=== PATIENT | female | born 1965 | race Caucasian/White ===

== ENCOUNTER 2016-04-13 10:49 | Emergency (ER) | payer OTHER ==
[2016-04-13] MEDS ORDERED: KETOROLAC 30 MG/ML VIAL (J1885) As Ordered ONE (11:09)
[2016-04-13] MEDS ORDERED: ONDANSETRON 4MG/2ML VIAL (J2405) As Ordered ONE (11:09)
[2016-04-13 11:46] LABS: BASO % 0.3 % (0.0-1.0); EOS # 0.1 K/mm3 (0.0-0.50); EOS % 1.3 % (0.0-3.0); LARGE UNSTAINED CELL # 0.1 K/mm3 (0.0-0.4); LARGE UNSTAINED CELL % 1.9 % (0.0-4.0); LYMPH # 1.2 K/mm3 (1.5-4.5); LYMPH % 20.8 % (24.0-44.0); MEAN CORPUSCULAR HEMOGLOBIN 28.9 pg (27.0-33.0); MEAN CORPUSCULAR HGB CONC 33.4 g/dl (32.0-36.5); MEAN CORPUSCULAR VOLUME 86.4 fl (80.0-96.0); MONO # 0.3 K/mm3 (0.0-0.8); MONO % 5.3 % (0.0-5.0); NEUTROPHILS # 3.9 K/mm3 (1.8-7.7); NEUTROPHILS % 70.4 % (36.0-66.0); PLATELET COUNT, AUTOMATED 245 k/mm3 (150-450); RED CELL DISTRIBUTION WIDTH 13.2 % (11.5-14.5); WHITE BLOOD COUNT 5.5 K/mm3 (4.0-10.0)
[2016-04-13 11:53] LABS: ALBUMIN 3.6 GM/DL (3.2-5.2); ALBUMIN/GLOBULIN RATIO 1.03 (1.00-1.93); ALKALINE PHOSPHATASE 60 U/L (45-117); ALT/SGPT 14 U/L (12-78); AMYLASE 38 U/L (25-115); ANION GAP 8 MEQ/L (8-16); AST/SGOT 7 U/L (15-37); BILIRUBIN,DIRECT < 0.1 MG/DL (0.0-0.2); BILIRUBIN,TOTAL 0.3 MG/DL (0.2-1.0); BLOOD UREA NITROGEN 12 MG/DL (7-18); CALCIUM LEVEL 8.5 MG/DL (8.5-10.1); CARBON DIOXIDE LEVEL 27 MEQ/L (21-32); CHLORIDE LEVEL 106 MEQ/L (98-107); CREATININE FOR GFR 0.63 MG/DL (0.55-1.02); GLOMERULAR FILTRATION RATE > 60.0 (>51); GLUCOSE, FASTING 86 MG/DL (70-105); SODIUM LEVEL 141 MEQ/L (136-145); TOTAL PROTEIN 7.1 GM/DL (6.4-8.2)
--- NOTE | 2016-04-13 12:36 | REP ---
CT ABDOMEN AND PELVIS WITHOUT CONTRAST: CT abdomen and pelvis performed without oral or IV contrast. The visualized lung bases demonstrate a calcified granuloma laterally on the right. The liver, gallbladder, spleen, adrenals, pancreas and right kidney are grossly unremarkable. The left kidney demonstrates a tiny 2 mm calcification in the lower pole. No ureteral or bladder calculi are seen. There is no hydroureteronephrosis. There is no abdominal aortic aneurysm. There is no adenopathy or free air. No bowel wall thickening is seen. There is no evidence of appendicitis. I see no evidence of a pelvic mass. A tiny amount of free fluid in the pelvis is likely physiologic in nature. There is a small umbilical hernia containing fat. IMPRESSION: Tiny intrarenal calcification lower pole left kidney. No ureteral or bladder calculi and no hydroureteronephrosis. No CT evidence of acute appendicitis. Small umbilical hernia contains fat. Signed by Darien Bower MD 04/13/2016 05:04 P
[2016-04-13] MEDS ORDERED: NITROFURANTOIN (MACROBID) 100 MG CAP As Ordered ONE (13:37)
[2016-04-13] MEDS ORDERED: PHENAZOPYRIDINE 100 MG TAB As Ordered ONE (13:37)
--- NOTE | 2016-04-13 13:47 | EDDOCDS ---
Physician Documentation [facility] Name: Gail Cantu Age: 50 yrs Sex: Female : 1965 Arrival Date: 04/13/2016 Time: 10:49 Bed I5 / M5 Private MD: Pan Ledezma [facility] Disposition: 04/13/16 13:34 Discharged to Home/Self Care. Impression: Calculus of kidney - Left tiny intrarenal calculus, Urinary tract infection, site not specified, Nausea and vomiting. - Condition is Stable. - Discharge Instructions: Kidney Stones, Urinary Tract Infection, [id number], Nausea and Vomiting, Ukqz-[id number]. - Prescriptions for Naprosyn 500 mg Oral Tablet - take 1 tablet by ORAL route 2 times per day take with food; 30 tablet. Pyridium 200 mg Oral Tablet - take 1 tablet by ORAL route every 8 hours for 3 days; 9 tablet. Macrobid 100 mg Oral Capsule - take 100 milligram by ORAL route every 12 hours for 10 days; 20 capsule. ZOFRAN ODT 4 mg - dissolve 1 tablet by ORAL route 4 times per day As needed do not chew, do not swallow whole; 10 tablet. - Medication Reconciliation, Local Pharmacy Hours form. - Follow up: Pan Ledezma; When: 1 - 2 days; Reason: Recheck today's complaints, Continuance of care. Follow up: Emergency Department; Reason: Worsening of conditions. Follow up: Jamison James; When: Call to arrange an appointment; Reason: Further diagnostic work-up, Recheck today's complaints, Continuance of care. - Problem is new. - Symptoms have improved. Historical: - Allergies: No known drug Allergies; - Home Meds: 1. Motrin 600 mg Oral tab 3 times per day (Last dose: 04/12/2016 21:00) 2. Zanaflex 4 mg Oral cap 1 cap 3 times per day (Last dose: 04/12/2016 21:00) - PMHx: none; - PSHx: D & C; - Social history: Smoking status: Patient states was never smoker of tobacco. No barriers to communication noted, The patient speaks fluent [place]ut[place], Speaks appropriately for age. - Family history: Not pertinent. - : The pt / caregiver states he / she is not on anticoagulants. Home medication list is obtained from the patient. - Exposure Risk Screening:: None identified. BATTERY PLATE REMOVER: 04/13 10:59 LMP 04/12/2016 hs1 Vital Signs: 10:51 BP 159 / 93; Pulse 76; Resp 18; Temp 98.7; Pulse Ox 98% on R/A; Weight 107.05 kg / 236 jrd lbs (R); Height 5 ft. 4 in. (162.56 cm) (R); Pain 10/10; 12:39 BP 157 / 86; Pulse 60; Resp 20; Temp 98.4(TE); Pulse Ox 100% on R/A; Pain 5/10; jml1 13:33 BP 145 / 87; Pulse 66; Resp 18; Temp 98.8(TE); Pulse Ox 97% on R/A; Pain 5/10; jml1 10:51 Body Mass Index 40.51 (107.05 kg, 162.56 cm) jrd MDM: 11:06 NS 0.9% 1000 ml IV at bolus once ordered. ef1 11:06 Ondansetron 4 mg IVP once ordered. ef1 11:06 ketorolac 30 mg IVP once ordered. ef1 11:06 IV Saline Lock ordered. ef1 11:06 Undress patient appropriately for examination ordered. ef1 11:06 UCG by Nursing ordered. ef1 11:06 UCG by Nursing ordered. ml6 11:06 Urine Dip ordered. ml6 11:06 Amylase Ordered. EDMS 11:06 Basic Metabolic Profile Ordered. EDMS 11:06 CBC with Diff Ordered. EDMS 11:06 Lipase Ordered. EDMS 11:06 Liver Profile Ordered. EDMS 11:06 Urinalysis Ordered. EDMS 11:06 Urine Culture Ordered. EDMS 11:07 CT ABD & PELVIS: No Contrast Ordered. EDMS 11:07 NOTHING BY MOUTH+DIET ordered. EDMS 11:36 Financial registration complete. mm15 11:40 [facility] [place] was scanned into [employer] and attached to record. mm15 12:33 CBC with Diff Reviewed. ef1 12:33 Liver Profile Reviewed. ef1 12:33 Urinalysis Reviewed. ef1 12:33 Amylase Reviewed. ef1 12:33 Basic Metabolic Profile Reviewed. ef1 12:33 Lipase Reviewed. ef1 13:34 Nitrofurantoin 100 mg PO once ordered. ef1 13:34 Phenazopyridine 200 mg PO once ordered. ef1 Point of Care Testing: Urine : 11:17 hCG Reading: Negative; Control Reading: Positive; ar3 Ranges: Administered Medications: : Drug: NS 0.9% 1000 ml [sodium chloride 0.9 % intravenous solution] Route: IV; Rate: dls bolus; Site: right antecubital; Drug: Ondansetron 4 mg [ondansetron HCl 2 mg/mL intravenous solution (2 mL)] Route: dls IVP; Site: right antecubital; Drug: ketorolac 30 mg [ketorolac 30 mg/mL (1 mL) injection solution (1 mL)] Route: IVP; dls Site: right antecubital; 13:43 Drug: Nitrofurantoin 100 mg Route: PO; chilo 13:43 Drug: Phenazopyridine 200 mg [phenazopyridine 100 mg tablet (2 tabs)] Route: PO; chilo Signatures: Dispatcher [employer] EDTwan Martin RN RN jmk Scott, Debra, RN RN dls Neli Cooley PA-C PA-C ef1 Barrera Bustillo RN RN ml6 Cortney Elias RN RN hs1 Manuel Ramirez mm15 The chart was reviewed and I authenticate all verbal orders and agree with the evaluation and treatment provided.Corrections: (The following items were deleted from the chart) 11:09 11:07 URINALYSIS+LAB ordered. EDNE EDMS Attachments: 11:40 [facility] Payment Agreement mm15 MTDD
--- NOTE | 2016-04-13 13:47 | EDDOCDS ---
Nurse's Notes [facility] Name: Gail Cantu Age: 50 yrs Sex: Female : 1965 Arrival Date: 04/13/2016 Time: 10:49 Bed I5 / M5 Private MD: Pan Ledezma NCFM Diagnosis: Calculus of kidney-Left tiny intrarenal calculus;Urinary tract infection, site not specified;Nausea and vomiting Presentation: 04/13 10:54 Presenting complaint: Patient states: Dr perez office on - and was told that hs1 she had a pulled muscle in back and was given Motrin and Zanaflex. Patient states medication not working and pain is worsening. Patient concerned for kidney infection however patient denies urgency frequency and/or burning. Patient does state she feels dehydrated. Adult Sepsis Screening: The patient does not have new or worsening altered mentation. Patient's respiratory rate is less than 22. Systolic blood pressure is greater than 100. Patient has a qSOFA score of 0- Negative Sepsis Screen. Suicide/Homicide risk assessment- the patient denies having any suicidal and/or homicidal ideations and does not present with any other emotional, behavioral or mental health complaints. Status: Patient is not a services account manager or dependent. Transition of care: patient was not received from another setting of care. 10:54 Acuity: KAT Level 3 hs1 10:54 Method Of Arrival: Walkin/Carried/Asstd hs1 Triage Assessment: 10:58 General: Appears in no apparent distress, uncomfortable, Behavior is appropriate for hs1 age, cooperative. Pain: Location: low back area and mid back area Pain currently is 10 out of 10 on a pain scale. HIV screening NA for this visit Offered previously. Respiratory: No deficits noted. GI: Abdomen is obese, Reports cramping, nausea. Derm: Skin is pink, warm & dry. normal. HYPO DIPPER: 10:59 LMP 04/12/2016 hs1 Historical: - Allergies: No known drug Allergies; - Home Meds: 1. Motrin 600 mg Oral tab 3 times per day (Last dose: 04/12/2016 21:00) 2. Zanaflex 4 mg Oral cap 1 cap 3 times per day (Last dose: 04/12/2016 21:00) - PMHx: none; - PSHx: D & C; - Social history: Smoking status: Patient states was never smoker of tobacco. No barriers to communication noted, The patient speaks fluent [place], Speaks appropriately for age. - Family history: Not pertinent. - : The pt / caregiver states he / she is not on anticoagulants. Home medication list is obtained from the patient. - Exposure Risk Screening:: None identified. Screenin:35 Screening information is obtained from the patient. Fall risk: No risks identified. dls Assistance ADL's: requires no assistance with activities of daily living. Abuse/DV Screen: The patient / caregiver reports he/she is: not in a situation that causes fear, pain or injury. Nutritional screening: No deficits noted. Advance Directives: Currently, there is no health care proxy. There is no active DNR order. There is no living will. There is no Power of Fitter/Welder. Advance directive information has not previously been placed in an [facility] medical record. home support is adequate. Assessment: 11:33 General: Appears in no apparent distress, well developed, well nourished, well groomed, dls Behavior is cooperative. Neurological: No deficits noted. EENT: No deficits noted. Cardiovascular: No deficits noted. Respiratory: No deficits noted. GI: No deficits noted. : No deficits noted. Derm: No deficits noted. Musculoskeletal: No deficits noted. 12:56 General: Appears states pain has decreased to 5/10. k 13:43 General: Appears continues to present in NAD. receptive to discharge. [facility] Vital Signs: 10:51 BP 159 / 93; Pulse 76; Resp 18; Temp 98.7; Pulse Ox 98% on R/A; Weight 107.05 kg (R); d Height 5 ft. 4 in. (162.56 cm) (R); Pain 10/10; 12:39 BP 157 / 86; Pulse 60; Resp 20; Temp 98.4(TE); Pulse Ox 100% on R/A; Pain 5/10; jml1 13:33 BP 145 / 87; Pulse 66; Resp 18; Temp 98.8(TE); Pulse Ox 97% on R/A; Pain 5/10; jml1 10:51 Body Mass Index 40.51 (107.05 kg, 162.56 cm) [facility] Vitals: 10:51 Log In Time: April 13, 2016 at 10:50. jrd ED Course: 10:50 Patient visited by Christ Melvin PCA. jrd 10:50 Patient moved to Waiting jrd 10:51 Pan Ledezma is Private Physician. jrd 10:53 Patient visited by Christ Melvin PCA. jrd 10:53 Patient moved to Pre RCE jrd 10:56 Triage Initiated hs1 10:59 Patient moved to Triage 3 hs1 11:00 Neli Cooley PA-C is PHCP. ef1 11:00 Corrina Vasquez MD is Attending Physician. ef1 11:00 Patient visited by Neli Cooley PA-C. ef1 11:08 Patient visited by Kassidy Ribeiro PCA. bnb 11:10 Patient moved to I5 / M5 ml6 11:17 Patient visited by Shila Sweeney PCA. ar3 11:25 Basic Metabolic Profile Sent. dls 11:25 CBC with Diff Sent. dls 11:25 Lipase Sent. dls 11:25 Liver Profile Sent. dls 11:25 Amylase Sent. dls 11:32 Patient visited by Kassidy Ribeiro PCA. bnb 11:32 Urine collected. Clean catch specimen. bnb 11:35 The patient / caregiver is instructed regarding the plan of care and ED course. dls 11:35 Inserted saline lock: 20 gauge in right antecubital area and blood collected. The dls patient tolerated the procedure well. No procedures done that require assistance. 11:40 [facility] Payment Agreement was scanned into [employer] and attached to record. mm15 12:33 Patient visited by Neli Cooley PA-C. ef1 12:39 Patient visited by Rodríguez Cano. jml1 12:57 Patient visited by Twan Hoyos RN. jmk 12:58 CT ABD & PELVIS: No Contrast Returned. EDMS 13:03 Patient name changed from Gail\S\Cheryl\S\White\S\ to Gail\S\M\S\White. EDMS 13:30 Patient visited by Neli Cooley PA-C. ef1 13:33 Patient visited by Rodríguez Cano. jml1 13:34 Pan Ledezma is Referral Physician. ef1 13:37 Jamison James is Referral Physician. ef1 13:43 Discontinued lock intact, bleeding controlled, pressure dressing applied, No jmk redness/swelling at site. Administered Medications: Drug: NS 0.9% 1000 ml [sodium chloride 0.9 % intravenous solution] Route: IV; Rate: dls bolus; Site: right antecubital; Drug: Ondansetron 4 mg [ondansetron HCl 2 mg/mL intravenous solution (2 mL)] Route: dls IVP; Site: right antecubital; Drug: ketorolac 30 mg [ketorolac 30 mg/mL (1 mL) injection solution (1 mL)] Route: IVP; dls Site: right antecubital; 13:43 Drug: Nitrofurantoin 100 mg Route: PO; [facility] 13:43 Drug: Phenazopyridine 200 mg [phenazopyridine 100 mg tablet (2 tabs)] Route: PO; reanna Point of Care Testing: Urine : : hCG Reading: Negative; Control Reading: Positive; ar3 Ranges: Order Results: Lab Order: Amylase; SPEC'M 04/13/16 11:09 Test: AMYLASE; Value: 38; Range: 25-115; Units: U/L; Status: F Lab Order: Basic Metabolic Profile; SPEC'M 04/13/16 11:09 Test: GLUCOSE, FASTING; Value: 86; Range: 70-105; Units: MG/DL; Status: F Test: BLOOD UREA NITROGEN; Value: 12; Range: 7-18; Units: MG/DL; Status: F Test: CREATININE FOR GFR; Value: 0.63; Range: 0.55-1.02; Units: MG/DL; Status: F Test: GLOMERULAR FILTRATION RATE; Value: > 60.0; Range: >51; Status: F Test: SODIUM LEVEL; Value: 141; Range: 136-145; Units: MEQ/L; Status: F Test: POTASSIUM SERUM; Value: 4.0; Range: 3.5-5.1; Units: MEQ/L; Status: F Test: CHLORIDE LEVEL; Value: 106; Range: 98-107; Units: MEQ/L; Status: F Test: CARBON DIOXIDE LEVEL; Value: 27; Range: 21-32; Units: MEQ/L; Status: F Test: ANION GAP; Value: 8; Range: 8-16; Units: MEQ/L; Status: F Test: CALCIUM LEVEL; Value: 8.5; Range: 8.5-10.1; Units: MG/DL; Status: F Test Note: ; Units are mL/min/1.73 m2 Chronic Kidney Disease Staging per NKF: Stage I & II GFR >=60 Normal to Mildly Decreased Stage III GFR 30-59 Moderately Decreased Stage IV GFR 15-29 Severely Decreased Stage V GFR <15 Very Little GFR Left ESRD GFR <15 on KEEL PRESS OPERATOR Lab Order: CBC with Diff; SPEC'M 04/13/16 11:09 Test: WHITE BLOOD COUNT; Value: 5.5; Range: 4.0-10.0; Units: K/mm3; Status: F Test: RED BLOOD COUNT; Value: 4.75; Range: 4.00-5.40; Units: M/mm3; Status: F Test: HEMOGLOBIN; Value: 13.7; Range: 12.0-16.0; Units: g/dl; Status: F Test: HEMATOCRIT; Value: 41.0; Range: 36.0-47.0; Units: %; Status: F Test: MEAN CORPUSCULAR VOLUME; Value: 86.4; Range: 80.0-96.0; Units: fl; Status: F Test: MEAN CORPUSCULAR HEMOGLOBIN; Value: 28.9; Range: 27.0-33.0; Units: pg; Status: F Test: MEAN CORPUSCULAR HGB CONC; Value: 33.4; Range: 32.0-36.5; Units: g/dl; Status: F Test: RED CELL DISTRIBUTION WIDTH; Value: 13.2; Range: 11.5-14.5; Units: %; Status: F Test: PLATELET COUNT, AUTOMATED; Value: 245; Range: 150-450; Units: k/mm3; Status: F Test: NEUTROPHILS %; Value: 70.4; Range: 36.0-66.0; Abnormal: Above high normal; Units: %; Status: F Test: LYMPH %; Value: 20.8; Range: 24.0-44.0; Abnormal: Below low normal; Units: %; Status: F Test: MONO %; Value: 5.3; Range: 0.0-5.0; Abnormal: Above high normal; Units: %; Status: F Test: EOS %; Value: 1.3; Range: 0.0-3.0; Units: %; Status: F Test: BASO %; Value: 0.3; Range: 0.0-1.0; Units: %; Status: F Test: LARGE UNSTAINED CELL %; Value: 1.9; Range: 0.0-4.0; Units: %; Status: F Test: NEUTROPHILS #; Value: 3.9; Range: 1.8-7.7; Units: K/mm3; Status: F Test: LYMPH #; Value: 1.2; Range: 1.5-4.5; Abnormal: Below low normal; Units: K/mm3; Status: F Test: MONO #; Value: 0.3; Range: 0.0-0.8; Units: K/mm3; Status: F Test: EOS #; Value: 0.1; Range: 0.0-0.50; Units: K/mm3; Status: F Test: BASO #; Value: 0.0; Range: 0.0-0.2; Units: K/mm3; Status: F Test: LARGE UNSTAINED CELL #; Value: 0.1; Range: 0.0-0.4; Units: K/mm3; Status: F Lab Order: Lipase; SPEC'M 04/13/16 11:09 Test: LIPASE; Value: 231; Range: 73-393; Units: U/L; Status: F Lab Order: Liver Profile; SPEC'M 04/13/16 11:09 Test: AST/SGOT; Value: 7; Range: 15-37; Abnormal: Below low normal; Units: U/L; Status: F Test: ALT/SGPT; Value: 14; Range: 12-78; Units: U/L; Status: F Test: ALKALINE PHOSPHATASE; Value: 60; Range: 45-117; Units: U/L; Status: F Test: BILIRUBIN,TOTAL; Value: 0.3; Range: 0.2-1.0; Units: MG/DL; Status: F Test: BILIRUBIN,DIRECT; Value: < 0.1; Range: 0.0-0.2; Units: MG/DL; Status: F Test: TOTAL PROTEIN; Value: 7.1; Range: 6.4-8.2; Units: GM/DL; Status: F Test: ALBUMIN; Value: 3.6; Range: 3.2-5.2; Units: GM/DL; Status: F Test: ALBUMIN/GLOBULIN RATIO; Value: 1.03; Range: 1.00-1.93; Status: F Lab Order: Urinalysis; SPEC'M 04/13/16 11:09 Test: APPEARANCE, URINE; Value: CLEAR; Range: CLEAR; Status: F Test: COLOR, URINE; Value: YELLOW; Range: YELLOW; Status: F Test: PH,URINE; Value: 8.0; Range: 5.0-9.0; Units: UNITS; Status: F Test: SPECIFIC GRAVITY URINE AUTO; Value: 1.008; Range: 1.002-1.035; Status: F Test: PROTEIN, URINE AUTO; Value: 1+; Range: NEGATIVE; Abnormal: Above high normal; Units: mg/dL; Status: F Test: GLUCOSE, URINE (UA) AUTO; Value: NEGATIVE; Range: NEGATIVE; Units: mg/dL; Status: F Test: KETONE, URINE AUTO; Value: NEGATIVE; Range: NEGATIVE; Units: mg/dL; Status: F Test: UROBILINOGEN, URINE AUTO; Value: 0.2; Range: 0.0-2.0; Units: mg/dL; Status: F Test: BILIRUBIN, URINE AUTO; Value: NEGATIVE; Range: NEGATIVE; Status: F Test: NITRITE, URINE AUTO; Value: NEGATIVE; Range: NEGATIVE; Status: F Test: LEUKOCYTE ESTERASE, URINE AUTO; Value: NEGATIVE; Range: NEGATIVE; Status: F Test: BLOOD, URINE BLOOD; Value: 3+; Range: NEGATIVE; Abnormal: Above high normal; Status: F Test: WBC, URINE AUTO; Value: 13; Range: 0-3; Abnormal: Above high normal; Units: /HPF; Status: F Test: RBC, URINE AUTO; Value: TNTC; Range: 0-3; Abnormal: Above high normal; Units: /HPF; Status: F Test: BACTERIA, URINE AUTO; Value: NEGATIVE; Range: NEGATIVE; Status: F Test: SQUAMOUS EPITHELIAL CELL UR AU; Value: 1; Range: 0-6; Units: /HPF; Status: F Test: MUCUS, URINE; Value: SMALL; Range: NEGATIVE; Status: F Test: HYALINE CAST, URINE AUTO; Value: 0; Range: 0-1; Units: /LPF; Status: F Radiology Order: CT ABD & PELVIS: No Contrast Test: CT ABD & PELVIS: No Contrast REASON FOR EXAMINATION: Renal colic; ; CT ABDOMEN AND PELVIS WITHOUT CONTRAST:; ; CT abdomen and pelvis performed without oral or IV contrast. The visualized lung; bases demonstrate a calcified granuloma laterally on the right. The liver,; gallbladder, spleen, adrenals, pancreas and right kidney are grossly; unremarkable. The left kidney demonstrates a tiny 2 mm calcification in the lower; pole. No ureteral or bladder calculi are seen. There is no hydroureteronephrosis.; There is no abdominal aortic aneurysm. There is no adenopathy or free air. No; bowel wall thickening is seen. There is no evidence of appendicitis. I see no; evidence of a pelvic mass. A tiny amount of free fluid in the pelvis is likely; physiologic in nature. There is a small umbilical hernia containing fat.; ; IMPRESSION:; Tiny intrarenal calcification lower pole left kidney. No ureteral or bladder; calculi and no hydroureteronephrosis. No CT evidence of acute appendicitis. Small; umbilical hernia contains fat.; ; ; ; Unreviewed; Outcome: 13:34 Discharge ordered by Provider. ef1 13:43 Discharge Assessment: Patient awake, alert and oriented x 3. No cognitive and/or jmk functional deficits noted. Patient verbalized understanding of disposition instructions. patient administered narcotics - no. The following High Risk Discharge criteria are identified: None. Discharged to home ambulatory. Condition: good. Discharge instructions given to patient, Instructed on discharge instructions, follow up and referral plans. medication usage, Demonstrated understanding of instructions, medications, Pt was receptive of discharge instructions/ teaching. Prescriptions given X 3. CT Study completed. Property :Personal belongings accompany Pt. 13:46 Patient left the ED. chilo Signatures: Dispatcher [employer] EDMS Twan Hoyos,RN RN juanjosek Love Delgado, RN RN Neli Hensley, PA-C PA-C ef1 Barrera Bustillo RN RN ml6 Shila Sweeney, PLANNER CHIEF PLANNER CHIEF ar3 Cortney Elias RN RN hs1 Rodríguez Cano jml1 Manuel Ramirez mm15 Christ Melvin, PLANNER CHIEF PLANNER CHIEF jrd Kassidy Ribeiro, PLANNER CHIEF PLANNER CHIEF bnb MTDD
--- NOTE | 2016-04-15 14:47 | EDDOCDS ---
Physician Documentation [facility] Name: Gail Cantu Age: 50 yrs Sex: Female : 1965 Arrival Date: 04/13/2016 Time: 10:49 Bed I5 / M5 Private MD: Pan Ledezma [facility] Disposition: 04/13/16 13:34 Discharged to Home/Self Care. Impression: Calculus of kidney - Left tiny intrarenal calculus, Urinary tract infection, site not specified, Nausea and vomiting. - Condition is Stable. - Discharge Instructions: Kidney Stones, Urinary Tract Infection, [id number], Nausea and Vomiting, Svkq-rh-Cvks. - Prescriptions for Naprosyn 500 mg Oral Tablet - take 1 tablet by ORAL route 2 times per day take with food; 30 tablet. Pyridium 200 mg Oral Tablet - take 1 tablet by ORAL route every 8 hours for 3 days; 9 tablet. Macrobid 100 mg Oral Capsule - take 100 milligram by ORAL route every 12 hours for 10 days; 20 capsule. ZOFRAN ODT 4 mg - dissolve 1 tablet by ORAL route 4 times per day As needed do not chew, do not swallow whole; 10 tablet. - Medication Reconciliation, Local Pharmacy Hours form. - Follow up: Pan Ledezma; When: 1 - 2 days; Reason: Recheck today's complaints, Continuance of care. Follow up: Emergency Department; Reason: Worsening of conditions. Follow up: Jamison James; When: Call to arrange an appointment; Reason: Further diagnostic work-up, Recheck today's complaints, Continuance of care. - Problem is new. - Symptoms have improved. Historical: - Allergies: No known drug Allergies; - Home Meds: 1. Motrin 600 mg Oral tab 3 times per day (Last dose: 04/12/2016 21:00) 2. Zanaflex 4 mg Oral cap 1 cap 3 times per day (Last dose: 04/12/2016 21:00) - PMHx: none; - PSHx: D & C; - Social history: Smoking status: Patient states was never smoker of tobacco. No barriers to communication noted, The patient speaks fluent Senegalese, Speaks appropriately for age. - Family history: Not pertinent. - : The pt / caregiver states he / she is not on anticoagulants. Home medication list is obtained from the patient. - Exposure Risk Screening:: None identified. 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 4 in. (162.56 cm) (R); Pain 10/10; 12:39 BP 157 / 86; Pulse 60; Resp 20; Temp 98.4(TE); Pulse Ox 100% on R/A; Pain 5/10; jml1 13:33 BP 145 / 87; Pulse 66; Resp 18; Temp 98.8(TE); Pulse Ox 97% on R/A; Pain 5/10; jml1 10:51 Body Mass Index 40.51 (107.05 kg, 162.56 cm) jrd MDM: 11:06 NS 0.9% 1000 ml IV at bolus once ordered. ef1 11:06 Ondansetron 4 mg IVP once ordered. ef1 11:06 ketorolac 30 mg IVP once ordered. ef1 11:06 IV Saline Lock ordered. ef1 11:06 Undress patient appropriately for examination ordered. ef1 11:06 UCG by Nursing ordered. ef1 11:06 UCG by Nursing ordered. ml6 11:06 Urine Dip ordered. ml6 11:06 Amylase Ordered. EDMS 11:06 Basic Metabolic Profile Ordered. EDMS 11:06 CBC with Diff Ordered. EDMS 11:06 Lipase Ordered. EDMS 11:06 Liver Profile Ordered. EDMS 11:06 Urinalysis Ordered. EDMS 11:06 Urine Culture Ordered. EDMS 11:07 CT ABD & PELVIS: No Contrast Ordered. EDMS 11:07 NOTHING BY MOUTH+DIET ordered. EDMS 11:36 Financial registration complete. mm15 11:40 [facility] Payment Agreement was scanned into [employer] and attached to record. mm15 12:33 CBC with Diff Reviewed. ef1 12:33 Liver Profile Reviewed. ef1 12:33 Urinalysis Reviewed. ef1 12:33 Amylase Reviewed. ef1 12:33 Basic Metabolic Profile Reviewed. ef1 12:33 Lipase Reviewed. ef1 13:34 Nitrofurantoin 100 mg PO once ordered. ef1 13:34 Phenazopyridine 200 mg PO once ordered. ef1 04/14 12:55 T-Sheet-- Draft Copy was scanned into [employer] and attached to record. gb 12:55 Radiology Report was scanned into [employer] and attached to record. gb Point of Care Testing: Urine : 04/13 11:17 hCG Reading: Negative; Control Reading: Positive; ar3 Ranges: Administered Medications: : Drug: NS 0.9% 1000 ml [sodium chloride 0.9 % intravenous solution] Route: IV; Rate: dls bolus; Site: right antecubital; : Drug: Ondansetron 4 mg [ondansetron HCl 2 mg/mL intravenous solution (2 mL)] Route: dls IVP; Site: right antecubital; : Drug: ketorolac 30 mg [ketorolac 30 mg/mL (1 mL) injection solution (1 mL)] Route: IVP; dls Site: right antecubital; 13:43 Drug: Nitrofurantoin 100 mg Route: PO; chilo 13:43 Drug: Phenazopyridine 200 mg [phenazopyridine 100 mg tablet (2 tabs)] Route: PO; chilo Signatures: Dispatcher [employer] EDMS Twan Hoyos RN RN Love Connolly RN RN dls Macarena Demarco, Neli Godfrey PA-C PA-C ef1 Barrera Bustillo RN RN ml6 Cortney Elias RN RN hs1 Manuel Ramirez mm15 The chart was reviewed and I authenticate all verbal orders and agree with the evaluation and treatment provided.Corrections: (The following items were deleted from the chart) 11: 11:07 URINALYSIS+LAB ordered. EDMS EDMS Attachments: 11:40 [facility] Payment Agreement mm15 04/14 12:55 T-Sheet-- Draft Copy gb Chart Complete MTDD
--- NOTE | 2016-04-15 14:47 | EDDOCDS ---
Nurse's Notes [facility] Name: Gail Cantu Age: 50 yrs Sex: Female : 1965 Arrival Date: 04/13/2016 Time: 10:49 Bed I5 / M5 Private MD: Pan Ledezma NCFM Diagnosis: Calculus of kidney-Left tiny intrarenal calculus;Urinary tract infection, site not specified;Nausea and vomiting Presentation: 04/13 10:54 Presenting complaint: Patient states: Dr perez office on - and was told that hs1 she had a pulled muscle in back and was given Motrin and Zanaflex. Patient states medication not working and pain is worsening. Patient concerned for kidney infection however patient denies urgency frequency and/or burning. Patient does state she feels dehydrated. Adult Sepsis Screening: The patient does not have new or worsening altered mentation. Patient's respiratory rate is less than 22. Systolic blood pressure is greater than 100. Patient has a qSOFA score of 0- Negative Sepsis Screen. Suicide/Homicide risk assessment- the patient denies having any suicidal and/or homicidal ideations and does not present with any other emotional, behavioral or mental health complaints. 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 Transition of care: patient was not received from another setting of care. 10:54 Acuity: KAT Level 3 hs1 10:54 Method Of Arrival: Walkin/Carried/Asstd hs1 Triage Assessment: 10:58 General: Appears in no apparent distress, uncomfortable, Behavior is appropriate for hs1 age, cooperative. Pain: Location: low back area and mid back area Pain currently is 10 out of 10 on a pain scale. HIV screening NA for this visit Offered previously. Respiratory: No deficits noted. GI: Abdomen is obese, Reports cramping, nausea. Derm: Skin is pink, warm & dry. normal. 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 Motrin 600 mg Oral tab 3 times per day (Last dose: 04/12/2016 21:00) 2. Zanaflex 4 mg Oral cap 1 cap 3 times per day (Last dose: 04/12/2016 21:00) - PMHx: none; - PSHx: D & C; - Social history: Smoking status: Patient states was never smoker of tobacco. No barriers to communication noted, The patient speaks fluent Portuguese, Speaks appropriately for age. - Family history: Not pertinent. - : The pt / caregiver states he / she is not on anticoagulants. Home medication list is obtained from the patient. - Exposure Risk Screening:: None identified. Screenin:35 Screening information is obtained from the patient. Fall risk: No risks identified. dls Assistance ADL's: requires no assistance with activities of daily living. Abuse/DV Screen: The patient / caregiver reports he/she is: not in a situation that causes fear, pain or injury. Nutritional screening: No deficits noted. Advance Directives: Currently, there is no health care proxy. There is no active DNR order. There is no living will. There is no Power of Commercial Engineer. Advance directive information has not previously been placed in an [facility] medical record. home support is adequate. Assessment: 11:33 General: Appears in no apparent distress, well developed, well nourished, well groomed, dls Behavior is cooperative. Neurological: No deficits noted. EENT: No deficits noted. Cardiovascular: No deficits noted. Respiratory: No deficits noted. GI: No deficits noted. : No deficits noted. Derm: No deficits noted. Musculoskeletal: No deficits noted. 12:56 General: Appears states pain has decreased to 5/10. k 13:43 General: Appears continues to present in NAD. receptive to discharge. [facility] Vital Signs: 10:51 BP 159 / 93; Pulse 76; Resp 18; Temp 98.7; Pulse Ox 98% on R/A; Weight 107.05 kg (R); d Height 5 ft. 4 in. (162.56 cm) (R); Pain 10/10; 12:39 BP 157 / 86; Pulse 60; Resp 20; Temp 98.4(TE); Pulse Ox 100% on R/A; Pain 5/10; jml1 13:33 BP 145 / 87; Pulse 66; Resp 18; Temp 98.8(TE); Pulse Ox 97% on R/A; Pain 5/10; jml1 10:51 Body Mass Index 40.51 (107.05 kg, 162.56 cm) [facility] Vitals: 10:51 Log In Time: April 13, 2016 at 10:50. jrd ED Course: 10:50 Patient visited by Christ Melvin PCA. jrd 10:50 Patient moved to Waiting jrd 10:51 Pan Ledezma is Private Physician. jrd 10:53 Patient visited by Christ Melvin PCA. jrd 10:53 Patient moved to Pre RCE jrd 10:56 Triage Initiated hs1 10:59 Patient moved to Triage 3 hs1 11:00 Neli Cooley PA-C is PHCP. ef1 11:00 Corrina Vasquez MD is Attending Physician. ef1 11:00 Patient visited by Neli Cooley PA-C. ef1 11:08 Patient visited by Kassidy Ribeiro PCA. bnb 11:10 Patient moved to I5 / M5 ml6 11:17 Patient visited by Shila Sweeney PCA. ar3 11:25 Basic Metabolic Profile Sent. dls 11:25 CBC with Diff Sent. dls 11:25 Lipase Sent. dls 11:25 Liver Profile Sent. dls 11:25 Amylase Sent. dls 11:32 Patient visited by Kassidy Ribeiro PCA. bnb 11:32 Urine collected. Clean catch specimen. bnb 11:35 The patient / caregiver is instructed regarding the plan of care and ED course. dls 11:35 Inserted saline lock: 20 gauge in right antecubital area and blood collected. The dls patient tolerated the procedure well. No procedures done that require assistance. 11:40 [facility] Payment Agreement was scanned into [employer] and attached to record. mm15 12:33 Patient visited by Neli Cooley PA-C. ef1 12:39 Patient visited by Rodríguez Cano. jml1 12:57 Patient visited by Twan Hoyos RN. jmk 12:58 CT ABD & PELVIS: No Contrast Returned. EDMS 13:03 Patient name changed from Gail\S\Cheryl\S\White\S\ to Gail\S\M\S\White. EDMS 13:30 Patient visited by Neli Cooley PA-C. ef1 13:33 Patient visited by Rodríguez Cano. jml1 13:34 Pan Ledezma is Referral Physician. ef1 13:37 Jamison James is Referral Physician. ef1 13:43 Discontinued lock intact, bleeding controlled, pressure dressing applied, No jmk redness/swelling at site. 04/14 12:55 T-Sheet-- Draft Copy was scanned into [employer] and attached to record. gb 12:55 Radiology Report was scanned into [employer] and attached to record. gb Administered Medications: 04/13 11:26 Drug: NS 0.9% 1000 ml [sodium chloride 0.9 % intravenous solution] Route: IV; Rate: dls bolus; Site: right antecubital; 11:26 Drug: Ondansetron 4 mg [ondansetron HCl 2 mg/mL intravenous solution (2 mL)] Route: dls IVP; Site: right antecubital; 11:26 Drug: ketorolac 30 mg [ketorolac 30 mg/mL (1 mL) injection solution (1 mL)] Route: IVP; dls Site: right antecubital; 13:43 Drug: Nitrofurantoin 100 mg Route: PO; [facility] 13:43 Drug: Phenazopyridine 200 mg [phenazopyridine 100 mg tablet (2 tabs)] Route: PO; [facility] Point of Care Testing: Urine : : hCG Reading: Negative; Control Reading: Positive; ar3 Ranges: Order Results: Lab Order: Amylase; SPEC'M 04/13/16 11:09 Test: AMYLASE; Value: 38; Range: 25-115; Units: U/L; Status: F Lab Order: Basic Metabolic Profile; SPEC'M 04/13/16 11:09 Test: GLUCOSE, FASTING; Value: 86; Range: 70-105; Units: MG/DL; Status: F Test: BLOOD UREA NITROGEN; Value: 12; Range: 7-18; Units: MG/DL; Status: F Test: CREATININE FOR GFR; Value: 0.63; Range: 0.55-1.02; Units: MG/DL; Status: F Test: GLOMERULAR FILTRATION RATE; Value: > 60.0; Range: >51; Status: F Test: SODIUM LEVEL; Value: 141; Range: 136-145; Units: MEQ/L; Status: F Test: POTASSIUM SERUM; Value: 4.0; Range: 3.5-5.1; Units: MEQ/L; Status: F Test: CHLORIDE LEVEL; Value: 106; Range: 98-107; Units: MEQ/L; Status: F Test: CARBON DIOXIDE LEVEL; Value: 27; Range: 21-32; Units: MEQ/L; Status: F Test: ANION GAP; Value: 8; Range: 8-16; Units: MEQ/L; Status: F Test: CALCIUM LEVEL; Value: 8.5; Range: 8.5-10.1; Units: MG/DL; Status: F Test Note: ; Units are mL/min/1.73 m2 Chronic Kidney Disease Staging per NKF: Stage I & II GFR >=60 Normal to Mildly Decreased Stage III GFR 30-59 Moderately Decreased Stage IV GFR 15-29 Severely Decreased Stage V GFR <15 Very Little GFR Left ESRD GFR <15 on FIRE COORDINATOR Lab Order: CBC with Diff; SPEC'M 04/13/16 11:09 Test: WHITE BLOOD COUNT; Value: 5.5; Range: 4.0-10.0; Units: K/mm3; Status: F Test: RED BLOOD COUNT; Value: 4.75; Range: 4.00-5.40; Units: M/mm3; Status: F Test: HEMOGLOBIN; Value: 13.7; Range: 12.0-16.0; Units: g/dl; Status: F Test: HEMATOCRIT; Value: 41.0; Range: 36.0-47.0; Units: %; Status: F Test: MEAN CORPUSCULAR VOLUME; Value: 86.4; Range: 80.0-96.0; Units: fl; Status: F Test: MEAN CORPUSCULAR HEMOGLOBIN; Value: 28.9; Range: 27.0-33.0; Units: pg; Status: F Test: MEAN CORPUSCULAR HGB CONC; Value: 33.4; Range: 32.0-36.5; Units: g/dl; Status: F Test: RED CELL DISTRIBUTION WIDTH; Value: 13.2; Range: 11.5-14.5; Units: %; Status: F Test: PLATELET COUNT, AUTOMATED; Value: 245; Range: 150-450; Units: k/mm3; Status: F Test: NEUTROPHILS %; Value: 70.4; Range: 36.0-66.0; Abnormal: Above high normal; Units: %; Status: F Test: LYMPH %; Value: 20.8; Range: 24.0-44.0; Abnormal: Below low normal; Units: %; Status: F Test: MONO %; Value: 5.3; Range: 0.0-5.0; Abnormal: Above high normal; Units: %; Status: F Test: EOS %; Value: 1.3; Range: 0.0-3.0; Units: %; Status: F Test: BASO %; Value: 0.3; Range: 0.0-1.0; Units: %; Status: F Test: LARGE UNSTAINED CELL %; Value: 1.9; Range: 0.0-4.0; Units: %; Status: F Test: NEUTROPHILS #; Value: 3.9; Range: 1.8-7.7; Units: K/mm3; Status: F Test: LYMPH #; Value: 1.2; Range: 1.5-4.5; Abnormal: Below low normal; Units: K/mm3; Status: F Test: MONO #; Value: 0.3; Range: 0.0-0.8; Units: K/mm3; Status: F Test: EOS #; Value: 0.1; Range: 0.0-0.50; Units: K/mm3; Status: F Test: BASO #; Value: 0.0; Range: 0.0-0.2; Units: K/mm3; Status: F Test: LARGE UNSTAINED CELL #; Value: 0.1; Range: 0.0-0.4; Units: K/mm3; Status: F Lab Order: Lipase; [facility] 04/13/16 11:09 Test: LIPASE; Value: 231; Range: 73-393; Units: U/L; Status: F Lab Order: Liver Profile; [facility]' 04/13/16 11:09 Test: AST/SGOT; Value: 7; Range: 15-37; Abnormal: Below low normal; Units: U/L; Status: F Test: ALT/SGPT; Value: 14; Range: 12-78; Units: U/L; Status: F Test: ALKALINE PHOSPHATASE; Value: 60; Range: 45-117; Units: U/L; Status: F Test: BILIRUBIN,TOTAL; Value: 0.3; Range: 0.2-1.0; Units: MG/DL; Status: F Test: BILIRUBIN,DIRECT; Value: < 0.1; Range: 0.0-0.2; Units: MG/DL; Status: F Test: TOTAL PROTEIN; Value: 7.1; Range: 6.4-8.2; Units: GM/DL; Status: F Test: ALBUMIN; Value: 3.6; Range: 3.2-5.2; Units: GM/DL; Status: F Test: ALBUMIN/GLOBULIN RATIO; Value: 1.03; Range: 1.00-1.93; Status: F Lab Order: Urinalysis; SPEC'M 04/13/16 11:09 Test: APPEARANCE, URINE; Value: CLEAR; Range: CLEAR; Status: F Test: COLOR, URINE; Value: YELLOW; Range: YELLOW; Status: F Test: PH,URINE; Value: 8.0; Range: 5.0-9.0; Units: UNITS; Status: F Test: SPECIFIC GRAVITY URINE AUTO; Value: 1.008; Range: 1.002-1.035; Status: F Test: PROTEIN, URINE AUTO; Value: 1+; Range: NEGATIVE; Abnormal: Above high normal; Units: mg/dL; Status: F Test: GLUCOSE, URINE (UA) AUTO; Value: NEGATIVE; Range: NEGATIVE; Units: mg/dL; Status: F Test: KETONE, URINE AUTO; Value: NEGATIVE; Range: NEGATIVE; Units: mg/dL; Status: F Test: UROBILINOGEN, URINE AUTO; Value: 0.2; Range: 0.0-2.0; Units: mg/dL; Status: F Test: BILIRUBIN, URINE AUTO; Value: NEGATIVE; Range: NEGATIVE; Status: F Test: NITRITE, URINE AUTO; Value: NEGATIVE; Range: NEGATIVE; Status: F Test: LEUKOCYTE ESTERASE, URINE AUTO; Value: NEGATIVE; Range: NEGATIVE; Status: F Test: BLOOD, URINE BLOOD; Value: 3+; Range: NEGATIVE; Abnormal: Above high normal; Status: F Test: WBC, URINE AUTO; Value: 13; Range: 0-3; Abnormal: Above high normal; Units: /HPF; Status: F Test: RBC, URINE AUTO; Value: TNTC; Range: 0-3; Abnormal: Above high normal; Units: /HPF; Status: F Test: BACTERIA, URINE AUTO; Value: NEGATIVE; Range: NEGATIVE; Status: F Test: SQUAMOUS EPITHELIAL CELL UR AU; Value: 1; Range: 0-6; Units: /HPF; Status: F Test: MUCUS, URINE; Value: SMALL; Range: NEGATIVE; Status: F Test: HYALINE CAST, URINE AUTO; Value: 0; Range: 0-1; Units: /LPF; Status: F Lab Order: Urine Culture; SPEC'M 04/13/16 11:09 Test: URINE CULTURE; Value: <EXTERNAL COMMENT eCWMed> FULL REPORT IN LAB NOTES (eCW and Medent).; Status: F Test: URINE CULTURE; Value: URINE CULTURE RESULT NO GROWTH CLINICAL SIGNIFICANCE 1 ORGANISM; Status: F Radiology Order: CT ABD & PELVIS: No Contrast Test: CT ABD & PELVIS: No Contrast REASON FOR EXAMINATION: Renal colic; CT ABDOMEN AND PELVIS WITHOUT CONTRAST:; ; CT abdomen and pelvis performed without oral or IV contrast. The visualized lung; bases demonstrate a calcified granuloma laterally on the right. The liver,; gallbladder, spleen, adrenals, pancreas and right kidney are grossly; unremarkable. The left kidney demonstrates a tiny 2 mm calcification in the lower; pole. No ureteral or bladder calculi are seen. There is no hydroureteronephrosis.; There is no abdominal aortic aneurysm. There is no adenopathy or free air. No; bowel wall thickening is seen. There is no evidence of appendicitis. I see no; evidence of a pelvic mass. A tiny amount of free fluid in the pelvis is likely; physiologic in nature. There is a small umbilical hernia containing fat.; ; IMPRESSION:; ; Tiny intrarenal calcification lower pole left kidney. No ureteral or bladder; calculi and no hydroureteronephrosis. No CT evidence of acute appendicitis. Small; umbilical hernia contains fat.; ; ; Signed by; Darien Bower MD 04/13/2016 05:04 P; Outcome: 13:34 Discharge ordered by Provider. ef1 13:43 Discharge Assessment: Patient awake, alert and oriented x 3. No cognitive and/or jmk functional deficits noted. Patient verbalized understanding of disposition instructions. patient administered narcotics - no. The following High Risk Discharge criteria are identified: None. Discharged to home ambulatory. Condition: good. Discharge instructions given to patient, Instructed on discharge instructions, follow up and referral plans. medication usage, Demonstrated understanding of instructions, medications, Pt was receptive of discharge instructions/ teaching. Prescriptions given X 3. CT Study completed. Property :Personal belongings accompany Pt. 13:46 Patient left the ED. jmk Signatures: Dispatcher [employer] EDMS Twan Hoyos,RN RN Love Connolly, RN RN dls Macarena Demarco, Reg Reg gb Neli Cooley, PA-C PA-C ef1 Barrera Bustillo, TIFFANI RN ml6 Shila Sweeney, WALLPAPER INSPECTOR WALLPAPER INSPECTOR ar3 Cortney Elias RN RN hs1 Rodríguez Cano jml1 Manuel Ramirez mm15 Christ Melvin, WALLPAPER INSPECTOR WALLPAPER INSPECTOR jrd Kassidy Ribeiro, WALLPAPER INSPECTOR WALLPAPER INSPECTOR bnb Chart Complete MTDD
--- NOTE | 2016-04-15 14:47 | EDDOCDS ---
Physician Documentation [facility] Name: Gail Cantu Age: 50 yrs Sex: Female : 1965 Arrival Date: 04/13/2016 Time: 10:49 Bed I5 / M5 Private MD: Pan Ledezma [facility] Disposition: 04/13/16 13:34 Discharged to Home/Self Care. Impression: Calculus of kidney - Left tiny intrarenal calculus, Urinary tract infection, site not specified, Nausea and vomiting. - Condition is Stable. - Discharge Instructions: Kidney Stones, Urinary Tract Infection, [id number], Nausea and Vomiting, [id number]. - Prescriptions for Naprosyn 500 mg Oral Tablet - take 1 tablet by ORAL route 2 times per day take with food; 30 tablet. Pyridium 200 mg Oral Tablet - take 1 tablet by ORAL route every 8 hours for 3 days; 9 tablet. Macrobid 100 mg Oral Capsule - take 100 milligram by ORAL route every 12 hours for 10 days; 20 capsule. ZOFRAN ODT 4 mg - dissolve 1 tablet by ORAL route 4 times per day As needed do not chew, do not swallow whole; 10 tablet. - Medication Reconciliation, Local Pharmacy Hours form. - Follow up: Pan Ledezma; When: 1 - 2 days; Reason: Recheck today's complaints, Continuance of care. Follow up: Emergency Department; Reason: Worsening of conditions. Follow up: Jamison James; When: Call to arrange an appointment; Reason: Further diagnostic work-up, Recheck today's complaints, Continuance of care. - Problem is new. - Symptoms have improved. Historical: - Allergies: No known drug Allergies; - Home Meds: 1. Motrin 600 mg Oral tab 3 times per day (Last dose: 04/12/2016 21:00) 2. Zanaflex 4 mg Oral cap 1 cap 3 times per day (Last dose: 04/12/2016 21:00) - PMHx: none; - PSHx: D & C; - Social history: Smoking status: Patient states was never smoker of tobacco. No barriers to communication noted, The patient speaks fluent [place] Citizen, Speaks appropriately for age. - Family history: Not pertinent. - : The pt / caregiver states he / she is not on anticoagulants. Home medication list is obtained from the patient. - Exposure Risk Screening:: None identified. 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 4 in. (162.56 cm) (R); Pain 10/10; 12:39 BP 157 / 86; Pulse 60; Resp 20; Temp 98.4(TE); Pulse Ox 100% on R/A; Pain 5/10; jml1 13:33 BP 145 / 87; Pulse 66; Resp 18; Temp 98.8(TE); Pulse Ox 97% on R/A; Pain 5/10; jml1 10:51 Body Mass Index 40.51 (107.05 kg, 162.56 cm) jrd MDM: 11:06 NS 0.9% 1000 ml IV at bolus once ordered. ef1 11:06 Ondansetron 4 mg IVP once ordered. ef1 11:06 ketorolac 30 mg IVP once ordered. ef1 11:06 IV Saline Lock ordered. ef1 11:06 Undress patient appropriately for examination ordered. ef1 11:06 UCG by Nursing ordered. ef1 11:06 UCG by Nursing ordered. ml6 11:06 Urine Dip ordered. ml6 11:06 Amylase Ordered. EDMS 11:06 Basic Metabolic Profile Ordered. EDMS 11:06 CBC with Diff Ordered. EDMS 11:06 Lipase Ordered. EDMS 11:06 Liver Profile Ordered. EDMS 11:06 Urinalysis Ordered. EDMS 11:06 Urine Culture Ordered. EDMS 11:07 CT ABD & PELVIS: No Contrast Ordered. EDMS 11:07 NOTHING BY MOUTH+DIET ordered. EDMS 11:36 Financial registration complete. mm15 11:40 [facility] Payment Agreement was scanned into [employer] and attached to record. mm15 12:33 CBC with Diff Reviewed. ef1 12:33 Liver Profile Reviewed. ef1 12:33 Urinalysis Reviewed. ef1 12:33 Amylase Reviewed. ef1 12:33 Basic Metabolic Profile Reviewed. ef1 12:33 Lipase Reviewed. ef1 13:34 Nitrofurantoin 100 mg PO once ordered. ef1 13:34 Phenazopyridine 200 mg PO once ordered. ef1 04/14 12:55 T-Sheet-- Draft Copy was scanned into [employer] and attached to record. gb 12:55 Radiology Report was scanned into [employer] and attached to record. gb Point of Care Testing: Urine : 04/13 11:17 hCG Reading: Negative; Control Reading: Positive; ar3 Ranges: Administered Medications: : Drug: NS 0.9% 1000 ml [sodium chloride 0.9 % intravenous solution] Route: IV; Rate: dls bolus; Site: right antecubital; : Drug: Ondansetron 4 mg [ondansetron HCl 2 mg/mL intravenous solution (2 mL)] Route: dls IVP; Site: right antecubital; : Drug: ketorolac 30 mg [ketorolac 30 mg/mL (1 mL) injection solution (1 mL)] Route: IVP; dls Site: right antecubital; 13:43 Drug: Nitrofurantoin 100 mg Route: PO; chilo 13:43 Drug: Phenazopyridine 200 mg [phenazopyridine 100 mg tablet (2 tabs)] Route: PO; chilo Signatures: Dispatcher [employer] EDMS Twan Hoyos RN RN Love Connolly RN RN dls Macarena Demarco, Neli Godfrey PA-C PA-C ef1 Barrera Bustillo RN RN ml6 Cortney Elias RN RN hs1 Manuel Ramirez mm15 The chart was reviewed and I authenticate all verbal orders and agree with the evaluation and treatment provided.Corrections: (The following items were deleted from the chart) 11: 11:07 URINALYSIS+LAB ordered. EDMS EDMS Attachments: 11:40 [facility] Payment Agreement mm15 04/14 12:55 T-Sheet-- Draft Copy gb Chart Complete MTDD
== END 2016-04-13 13:46 | disposition home or self-care (01) ==
LOC: M ED 10:49
DX: N20.1 Calculus of ureter (principal); N39.0 Urinary tract infection, site not specified; R11.2 Nausea with vomiting, unspecified; K42.9 Umbilical hernia without obstruction or gangrene; R10.9 Unspecified abdominal pain; Z79.1 Long term (current) use of non-steroidal anti-inflammatories (NSAID); Z79.899 Other long term (current) drug therapy

== ENCOUNTER 2016-05-07 10:55 | Emergency (ER) | payer OTHER, SELFPAY ==
[2016-05-07] MEDS ORDERED: MORPHINE 4 MG/ML 1ML SYRINGE As Ordered ONE (12:24)
[2016-05-07] MEDS ORDERED: ONDANSETRON 4MG/2ML VIAL (J2405) As Ordered ONE (12:24)
[2016-05-07 12:44] LABS: BASO % 0.3 % (0.0-1.0); EOS % 0.7 % (0.0-3.0); LARGE UNSTAINED CELL # 0.1 K/mm3 (0.0-0.4); LARGE UNSTAINED CELL % 1.7 % (0.0-4.0); LYMPH # 1.1 K/mm3 (1.5-4.5); LYMPH % 17.7 % (24.0-44.0); MEAN CORPUSCULAR HEMOGLOBIN 28.7 pg (27.0-33.0); MEAN CORPUSCULAR HGB CONC 32.9 g/dl (32.0-36.5); MEAN CORPUSCULAR VOLUME 87.2 fl (80.0-96.0); MONO # 0.3 K/mm3 (0.0-0.8); MONO % 4.6 % (0.0-5.0); NEUTROPHILS # 4.7 K/mm3 (1.8-7.7); PLATELET COUNT, AUTOMATED 213 k/mm3 (150-450); RED CELL DISTRIBUTION WIDTH 13.5 % (11.5-14.5); WHITE BLOOD COUNT 6.2 K/mm3 (4.0-10.0)
[2016-05-07 13:01] LABS: ALBUMIN 3.9 GM/DL (3.2-5.2); ALBUMIN/GLOBULIN RATIO 1.08 (1.00-1.93); ALKALINE PHOSPHATASE 53 U/L (45-117); ALT/SGPT 12 U/L (12-78); AMYLASE 38 U/L (25-115); ANION GAP 9 MEQ/L (8-16); AST/SGOT 10 U/L (15-37); BILIRUBIN,DIRECT < 0.1 MG/DL (0.0-0.2); BILIRUBIN,TOTAL 0.5 MG/DL (0.2-1.0); BLOOD UREA NITROGEN 14 MG/DL (7-18); CALCIUM LEVEL 8.8 MG/DL (8.5-10.1); CARBON DIOXIDE LEVEL 27 MEQ/L (21-32); CHLORIDE LEVEL 106 MEQ/L (98-107); CREATININE FOR GFR 0.66 MG/DL (0.55-1.02); GLOMERULAR FILTRATION RATE > 60.0 (>51); GLUCOSE, FASTING 97 MG/DL (70-105); POTASSIUM SERUM 3.9 MEQ/L (3.5-5.1); SODIUM LEVEL 142 MEQ/L (136-145); TOTAL PROTEIN 7.5 GM/DL (6.4-8.2)
--- NOTE | 2016-05-07 13:02 | REP ---
Clinical: Biliary colic and abdominal pain. Technique: Bower scale ultrasound using curved array transducer. Findings: The liver and pancreas are normal in contour, size, and echogenicity without focal hepatic or pancreatic lesions identified. The gallbladder is normal without gallstones, wall thickening or pericholecystic fluid. No biliary ductal dilatation is appreciated, and the common bile duct measures 4.9 mm diameter. The right kidney is normal in reniform shape without hydronephrosis and measures 11.0 x 5.7 x 5.4 cm. No ascites. Visualized portions of the abdominal aorta normal. Impression: Normal right upper quadrant and gallbladder abdominal ultrasound. Signed by Alfredo Bess MD 05/07/2016 12:55 P
--- NOTE | 2016-05-07 13:54 | EDDOCDS ---
Nurse's Notes [facility] Name: Gail Cantu Age: 50 yrs Sex: Female : 1965 Arrival Date: 05/07/2016 Time: 10:55 Bed I4 / M4 Private MD: Pan Ledezma NCFM Diagnosis: Upper abdominal pain, unspecified-biliary colic;Fatty (change of) liver, not elsewhere classified Presentation: 05/07 11:02 Presenting complaint: Patient states: right upper abdominal pain with history of same kr3 for 'quite a while'. recently treated for same pain with antibiotics with no relief. was seen by urology and was told not kidney problem. Has not been able to follow up with PCP. Risk factors: the patient reports no vaginal bleeding. Adult Sepsis Screening: The patient does not have new or worsening altered mentation. Patient's respiratory rate is less than 22. Systolic blood pressure is greater than 100. Patient has a qSOFA score of 0- Negative Sepsis Screen. Suicide/Homicide risk assessment- the patient denies having any suicidal and/or homicidal ideations and does not present with any other emotional, behavioral or mental health complaints. 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 Transition of care: patient was not received from another setting of care. 11:02 Acuity: KAT Level 3 kr3 11:02 Method Of Arrival: Walkin/Carried/Asstd kr3 Triage Assessment: 11:05 General: Appears in no apparent distress, comfortable, Behavior is cooperative. Pain: kr3 Location: right upper quadrant Pain currently is 10 out of 10 on a pain scale. Quality of pain is described as sharp. HIV screening NA for this visit Offered previously. Neurological: Level of Consciousness is awake, alert. Respiratory: Respiratory effort is even, unlabored. GI: Reports constipation, Denies diarrhea, nausea, vomiting. : Denies burning with urination, inability to void, urinary frequency, urgency. Derm: Skin is normal. 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 naproxen 500 mg Oral TbEC 1 tab 2 times per day as needed (Last dose: 05/07/2016 09:00) - PMHx: none; - PSHx: none; - Social history: Smoking status: Patient states was never smoker of tobacco. No barriers to communication noted, The patient speaks fluent Hebrew, Speaks appropriately for age. - Family history: Not pertinent. - : The pt / caregiver states he / she is not on anticoagulants. Home medication list is obtained from the patient. - Exposure Risk Screening:: None identified. Screenin:32 Screening information is obtained from the patient. Fall risk: No risks identified. mk4 Assistance ADL's: requires no assistance with activities of daily living. Abuse/DV Screen: The patient / caregiver reports he/she is: not in a situation that causes fear, pain or injury. Nutritional screening: No deficits noted. Advance Directives: Currently, there is no health care proxy. There is no active DNR order. There is no living will. There is no Power of Director Of Analytical Development. home support is adequate. Assessment: 12:32 General: Appears uncomfortable. Pain: Location: right upper quadrant Pain currently is mk4 10 out of 10 on a pain scale. Quality of pain is described as aching, Pain began 3 weeks ago Aggravated by eating. GI: Abdomen is obese, Bowel sounds present X 4 quads. Abd is tender to palpation in right upper quadrant. 13:20 Reassessment: Patient appears in no apparent distress at this time. Respiratory: kr3 Respiratory effort is even, unlabored. Derm: Skin is normal. 13:53 Reassessment: Patient appears in no apparent distress at this time. Pain: Location: kr3 right upper quadrant Pain currently is 8 out of 10 on a pain scale. Vital Signs: 10:57 BP 188 / 112 RA Sitting (auto/lg); Pulse 83; Resp 18; Temp 97.3(O); Pulse Ox 99% on bnb R/A; Weight 73.03 kg (R); Height 5 ft. 4 in. (162.56 cm) (R); Pain 10/10; 10:57 BP 156 / 82 LA Sitting (auto/lg); bnb 13:21 BP 134 / 67; Pulse 65; Resp 18; Temp 97.4(O); Pulse Ox 100% on R/A; Pain 10/10; jml1 13:51 Pain 8/10; kr3 10:57 Body Mass Index 27.64 (73.03 kg, 162.56 cm) [facility] Vitals: 10:57 Log In Time: May 07, 2016 at 10:55. bnb ED Course: 10:56 Patient visited by Kassidy Ribeiro PCA. bnb 10:56 Patient moved to Waiting bnb 10:57 Pan Ledezma is Private Physician. bnb 11:00 Patient moved to Pre RCE bnb 11:04 Triage Initiated kr3 11:33 Patient moved to Triage 1 jb5 11:55 oJhn [facility] ar2 11:55 Luke Tan MD is Attending Physician. ar2 11:58 Patient visited by John Mohamud PA-C. ar2 12:09 Patient moved to I4 / M4 jb5 12:21 Amylase Sent. mk4 12:21 Basic Metabolic Profile Sent. mk4 12:21 CBC with Diff Sent. mk4 12:21 Lipase Sent. mk4 12:21 Liver Profile Sent. mk4 12:31 Patient visited by Nehal Ngo RN. mk4 12:32 The patient / caregiver is instructed regarding the plan of care and ED course. mk4 12:32 Inserted saline lock: 20 gauge in right antecubital area and blood collected. mk4 12:36 Patient moved to Ultrasound am17 12:51 Patient moved to I4 / M4 am17 13:04 [facility] Payment Agreement was scanned into [employer] and attached to record. mm15 13:17 Patient visited by Rodríguez Cano. jml1 13:22 Patient visited by Rodríguez Cano. jml1 13:23 Gallbladder US Returned. EDMS 13:43 Pan Ledezma is Referral Physician. ar2 13:43 Rayray Carroll MD is Referral Physician. ar2 13:52 Discontinued lock intact, bleeding controlled, pressure dressing applied, No kr3 redness/swelling at site. No procedures done that require assistance. Administered Medications: 12:32 Drug: Ondansetron 4 mg Route: IVP; Site: right antecubital; mk4 12:32 Drug: morphine 4 mg [morphine 4 mg/mL intravenous cartridge (1 mL)] Route: IVP; Site: mk4 right antecubital; 13:51 Follow up: Pain 8/10 Adult kr3 12:32 Drug: NS 0.9% 1000 ml [sodium chloride 0.9 % intravenous solution] Route: IV; Rate: mk4 bolus; Site: right antecubital; 13:52 Follow up: IV Status: Infusion discontinued; IV Intake: 300ml kr3 Point of Care Testing: Urine Dip: 13:19 pH: 5; ; Specific [place]: 1.020; Ketones: Small; Glucose: Negative; Protein: Trace; kr3 Leukocytes: Trace; Nitrite: Negative ; Blood: Negative; Bilirubin: Negative ; Urobilinogen: Normal Ranges: Intake: 13:52 IV: 300.00ml; Total: 300.00ml. kr3 Order Results: Lab Order: Amylase; SPEC'M 05/07/16 12:13 Test: AMYLASE; Value: 38; Range: 25-115; Units: U/L; Status: F Lab Order: Basic Metabolic Profile; SPEC'M 05/07/16 12:13 Test: GLUCOSE, FASTING; Value: 97; Range: 70-105; Units: MG/DL; Status: F Test: BLOOD UREA NITROGEN; Value: 14; Range: 7-18; Units: MG/DL; Status: F Test: CREATININE FOR GFR; Value: 0.66; Range: 0.55-1.02; Units: MG/DL; Status: F Test: GLOMERULAR FILTRATION RATE; Value: > 60.0; Range: >51; Status: F Test: SODIUM LEVEL; Value: 142; Range: 136-145; Units: MEQ/L; Status: F Test: POTASSIUM SERUM; Value: 3.9; Range: 3.5-5.1; Units: MEQ/L; Status: F Test: CHLORIDE LEVEL; Value: 106; Range: 98-107; Units: MEQ/L; Status: F Test: CARBON DIOXIDE LEVEL; Value: 27; Range: 21-32; Units: MEQ/L; Status: F Test: ANION GAP; Value: 9; Range: 8-16; Units: MEQ/L; Status: F Test: CALCIUM LEVEL; Value: 8.8; Range: 8.5-10.1; Units: MG/DL; Status: F Test Note: ; Units are mL/min/1.73 m2 Chronic Kidney Disease Staging per NKF: Stage I & II GFR >=60 Normal to Mildly Decreased Stage III GFR 30-59 Moderately Decreased Stage IV GFR 15-29 Severely Decreased Stage V GFR <15 Very Little GFR Left ESRD GFR <15 on 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 Lab Order: CBC with Diff; SPEC'M 05/07/16 12:13 Test: WHITE BLOOD COUNT; Value: 6.2; Range: 4.0-10.0; Units: K/mm3; Status: F Test: RED BLOOD COUNT; Value: 4.68; Range: 4.00-5.40; Units: M/mm3; Status: F Test: HEMOGLOBIN; Value: 13.4; Range: 12.0-16.0; Units: g/dl; Status: F Test: HEMATOCRIT; Value: 40.8; Range: 36.0-47.0; Units: %; Status: F Test: MEAN CORPUSCULAR VOLUME; Value: 87.2; Range: 80.0-96.0; Units: fl; Status: F Test: MEAN CORPUSCULAR HEMOGLOBIN; Value: 28.7; Range: 27.0-33.0; Units: pg; Status: F Test: MEAN CORPUSCULAR HGB CONC; Value: 32.9; Range: 32.0-36.5; Units: g/dl; Status: F Test: RED CELL DISTRIBUTION WIDTH; Value: 13.5; Range: 11.5-14.5; Units: %; Status: F Test: PLATELET COUNT, AUTOMATED; Value: 213; Range: 150-450; Units: k/mm3; Status: F Test: NEUTROPHILS %; Value: 75.0; Range: 36.0-66.0; Abnormal: Above high normal; Units: %; Status: F Test: LYMPH %; Value: 17.7; Range: 24.0-44.0; Abnormal: Below low normal; Units: %; Status: F Test: MONO %; Value: 4.6; Range: 0.0-5.0; Units: %; Status: F Test: EOS %; Value: 0.7; Range: 0.0-3.0; Units: %; Status: F Test: BASO %; Value: 0.3; Range: 0.0-1.0; Units: %; Status: F Test: LARGE UNSTAINED CELL %; Value: 1.7; Range: 0.0-4.0; Units: %; Status: F Test: NEUTROPHILS #; Value: 4.7; Range: 1.8-7.7; Units: K/mm3; Status: F Test: LYMPH #; Value: 1.1; Range: 1.5-4.5; Abnormal: Below low normal; Units: K/mm3; Status: F Test: MONO #; Value: 0.3; Range: 0.0-0.8; Units: K/mm3; Status: F Test: EOS #; Value: 0.0; Range: 0.0-0.50; Units: K/mm3; Status: F Test: BASO #; Value: 0.0; Range: 0.0-0.2; Units: K/mm3; Status: F Test: LARGE UNSTAINED CELL #; Value: 0.1; Range: 0.0-0.4; Units: K/mm3; Status: F Lab Order: Lipase; [facility]' 05/07/16 12:13 Test: LIPASE; Value: 225; Range: 73-393; Units: U/L; Status: F Lab Order: Liver Profile; [facility] 05/07/16 12:13 Test: AST/SGOT; Value: 10; Range: 15-37; Abnormal: Below low normal; Units: U/L; Status: F Test: ALT/SGPT; Value: 12; Range: 12-78; Units: U/L; Status: F Test: ALKALINE PHOSPHATASE; Value: 53; Range: 45-117; Units: U/L; Status: F Test: BILIRUBIN,TOTAL; Value: 0.5; Range: 0.2-1.0; Units: MG/DL; Status: F Test: BILIRUBIN,DIRECT; Value: < 0.1; Range: 0.0-0.2; Units: MG/DL; Status: F Test: TOTAL PROTEIN; Value: 7.5; Range: 6.4-8.2; Units: GM/DL; Status: F Test: ALBUMIN; Value: 3.9; Range: 3.2-5.2; Units: GM/DL; Status: F Test: ALBUMIN/GLOBULIN RATIO; Value: 1.08; Range: 1.00-1.93; Status: F Radiology Order: Gallbladder US Test: Gallbladder US REASON FOR EXAMINATION: Biliary Colic; Clinical: Biliary colic and abdominal pain.; ; Technique: Bower scale ultrasound using curved array transducer.; ; Findings: The liver and pancreas are normal in contour, size, and echogenicity; without focal hepatic or pancreatic lesions identified. The gallbladder is; normal without gallstones, wall thickening or pericholecystic fluid. No biliary; ductal dilatation is appreciated, and the common bile duct measures 4.9 mm; diameter. The right kidney is normal in reniform shape without hydronephrosis; and measures 11.0 x 5.7 x 5.4 cm. No ascites. Visualized portions of the; abdominal aorta normal.; ; Impression:; Normal right upper quadrant and gallbladder abdominal ultrasound.; ; ; Signed by; Alfredo Bess MD 05/07/2016 12:55 P; Outcome: 13:20 Ultrasound Study completed. kr3 13:44 Discharge ordered by Provider. ar2 13:52 Discharge Assessment: patient administered narcotics - no. The following High Risk kr3 Discharge criteria are identified: None. Discharged to home ambulatory. Condition: stable. Discharge instructions given to patient, Instructed on discharge instructions, follow up and referral plans. medication usage, Demonstrated understanding of instructions, medications, Pt was receptive of discharge instructions/ teaching. Prescriptions given X 3. Property sent home with patient. 13:53 Patient left the ED. kr3 Signatures: Dispatcher [employer] EDMS Donna Rosen,RN RN kr3 Nery Benson, RAG ROOM SUPERVISOR RAG ROOM SUPERVISOR jb5 John Mohamud, FRACISCO PAMakeda ar2 Rodríguez Cano jml1 Manuel Ramirez mm15 Nehal Ngo, RN RN mk4 Cecy Kaufman am17 Kassidy Ribeiro, RAG ROOM SUPERVISOR RAG ROOM SUPERVISOR bnb MTDD
--- NOTE | 2016-05-07 13:54 | EDDOCDS ---
Physician Documentation [facility] Name: Gail Cantu Age: 50 yrs Sex: Female : 1965 Arrival Date: 05/07/2016 Time: 10:55 Bed I4 / M4 Private MD: Pan Ledezma, [facility] Disposition: 05/07/16 13:44 Discharged to Home/Self Care. Impression: Upper abdominal pain, unspecified - biliary colic, Fatty (change of) liver, not elsewhere classified. - Condition is Stable. - Discharge Instructions: Biliary Colic. - Prescriptions for Prilosec 20 mg Oral Capsule, Delayed Release(E.C.) - take 1 capsule by ORAL route once daily; 30 capsule. Ultram 50 mg Oral Tablet - take 1 tablet by ORAL route every 6 hours As needed MDD: 4 tabs; 12 tablet. ZOFRAN ODT 4 mg Oral - dissolve 1 tablet by ORAL route every 8 hours As needed do not chew, do not swallow whole; 10 tablet. - Medication Reconciliation, Local Pharmacy Hours form. - Follow up: Pan Ledezma; When: 1 week; Reason: Recheck today's complaints. Follow up: Rayray Carroll MD; When: As needed; Reason: Further diagnostic work-up, Recheck today's complaints. Follow up: Emergency Department; When: As needed; Reason: Fever > 102F, Worsening of conditions. - Problem is new. - Symptoms have improved. Historical: - Allergies: No known drug Allergies; - Home Meds: 1. naproxen 500 mg Oral TbEC 1 tab 2 times per day as needed (Last dose: 05/07/2016 09:00) - PMHx: none; - PSHx: none; - Social history: Smoking status: Patient states was never smoker of tobacco. No barriers to communication noted, The patient speaks fluent [place], Speaks appropriately for age. - Family history: Not pertinent. - : The pt / caregiver states he / she is not on anticoagulants. Home medication list is obtained from the patient. - Exposure Risk Screening:: None identified. 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 4 in. (162.56 cm) (R); Pain 10/10; 10:57 BP 156 / 82 LA Sitting (auto/lg); bnb 13:21 BP 134 / 67; Pulse 65; Resp 18; Temp 97.4(O); Pulse Ox 100% on R/A; Pain 10/10; jml1 13:51 Pain 8/10; kr3 10:57 Body Mass Index 27.64 (73.03 kg, 162.56 cm) bnb MDM: 12:11 IV Saline Lock ordered. ar2 12:11 Undress patient appropriately for examination ordered. ar2 12:11 Ondansetron 4 mg IVP once ordered. ar2 12:11 morphine 4 mg IVP once ordered. ar2 12:12 NS 0.9% 1000 ml IV at bolus once ordered. ar2 12:12 Amylase Ordered. EDMS 12:12 Basic Metabolic Profile Ordered. EDMS 12:12 CBC with Diff Ordered. EDMS 12:12 Lipase Ordered. EDMS 12:12 Liver Profile Ordered. EDMS 12:12 NOTHING BY MOUTH+DIET ordered. EDMS 12:12 Gallbladder US Ordered. EDMS 12:58 Financial registration complete. mm15 13:04 [facility] Payment Agreement was scanned into [employer] and attached to record. mm15 13:07 CBC with Diff Reviewed. ar2 13:07 Liver Profile Reviewed. ar2 13:07 Amylase Reviewed. ar2 13:07 Basic Metabolic Profile Reviewed. ar2 13:07 Lipase Reviewed. ar2 13:10 Urine Dip ordered. ar2 Point of Care Testing: Urine Dip: 13:19 pH: 5; ; Specific [place]: 1.020; Ketones: Small; Glucose: Negative; Protein: Trace; kr3 Leukocytes: Trace; Nitrite: Negative ; Blood: Negative; Bilirubin: Negative ; Urobilinogen: Normal Ranges: Administered Medications: 12:32 Drug: Ondansetron 4 mg Route: IVP; Site: right antecubital; mk4 12:32 Drug: morphine 4 mg [morphine 4 mg/mL intravenous cartridge (1 mL)] Route: IVP; Site: mk4 right antecubital; 13:51 Follow up: Pain 8/10 Adult kr3 12:32 Drug: NS 0.9% 1000 ml [sodium chloride 0.9 % intravenous solution] Route: IV; Rate: mk4 bolus; Site: right antecubital; 13:52 Follow up: IV Status: Infusion discontinued; IV Intake: 300ml kr3 Signatures: Dispatcher [employer] Donna Pérez,RN RN kr3 John Mohamud PA-C PA-C ar2 Manuel Ramirez mm15 Nehal Ngo RN RN mk4 The chart was reviewed and I authenticate all verbal orders and agree with the evaluation and treatment provided.Attachments: 13:04 [facility] Payment Agreement mm15 MTDD
--- NOTE | 2016-05-09 14:54 | EDDOCDS ---
Physician Documentation [facility] Name: Gail Cantu Age: 50 yrs Sex: Female : 1965 Arrival Date: 05/07/2016 Time: 10:55 Bed I4 / M4 Private MD: Pan Ledezma, [facility] Disposition: 05/07/16 13:44 Discharged to Home/Self Care. Impression: Upper abdominal pain, unspecified - biliary colic, Fatty (change of) liver, not elsewhere classified. - Condition is Stable. - Discharge Instructions: Biliary Colic. - Prescriptions for Prilosec 20 mg Oral Capsule, Delayed Release(E.C.) - take 1 capsule by ORAL route once daily; 30 capsule. Ultram 50 mg Oral Tablet - take 1 tablet by ORAL route every 6 hours As needed MDD: 4 tabs; 12 tablet. ZOFRAN ODT 4 mg Oral - dissolve 1 tablet by ORAL route every 8 hours As needed do not chew, do not swallow whole; 10 tablet. - Medication Reconciliation, Local Pharmacy Hours form. - Follow up: Pan Ledezma; When: 1 week; Reason: Recheck today's complaints. Follow up: Rayray Carroll MD; When: As needed; Reason: Further diagnostic work-up, Recheck today's complaints. Follow up: Emergency Department; When: As needed; Reason: Fever > 102F, Worsening of conditions. - Problem is new. - Symptoms have improved. Historical: - Allergies: No known drug Allergies; - Home Meds: 1. naproxen 500 mg Oral TbEC 1 tab 2 times per day as needed (Last dose: 05/07/2016 09:00) - PMHx: none; - PSHx: none; - Social history: Smoking status: Patient states was never smoker of tobacco. No barriers to communication noted, The patient speaks fluent Spanish, Speaks appropriately for age. - Family history: Not pertinent. - : The pt / caregiver states he / she is not on anticoagulants. Home medication list is obtained from the patient. - Exposure Risk Screening:: None identified. 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 4 in. (162.56 cm) (R); Pain 10/10; 10:57 BP 156 / 82 LA Sitting (auto/lg); bnb 13:21 BP 134 / 67; Pulse 65; Resp 18; Temp 97.4(O); Pulse Ox 100% on R/A; Pain 10/10; jml1 13:51 Pain 8/10; kr3 10:57 Body Mass Index 27.64 (73.03 kg, 162.56 cm) bnb MDM: 12:11 IV Saline Lock ordered. ar2 12:11 Undress patient appropriately for examination ordered. ar2 12:11 Ondansetron 4 mg IVP once ordered. ar2 12:11 morphine 4 mg IVP once ordered. ar2 12:12 NS 0.9% 1000 ml IV at bolus once ordered. ar2 12:12 Amylase Ordered. EDMS 12:12 Basic Metabolic Profile Ordered. EDMS 12:12 CBC with Diff Ordered. EDMS 12:12 Lipase Ordered. EDMS 12:12 Liver Profile Ordered. EDMS 12:12 NOTHING BY MOUTH+DIET ordered. EDMS 12:12 Gallbladder US Ordered. EDMS 12:58 Financial registration complete. mm15 13:04 [facility] [place] Payment Agreement was scanned into [employer] and attached to record. mm15 13:07 CBC with Diff Reviewed. ar2 13:07 Liver Profile Reviewed. ar2 13:07 Amylase Reviewed. ar2 13:07 Basic Metabolic Profile Reviewed. ar2 13:07 Lipase Reviewed. ar2 13:10 Urine Dip ordered. ar2 05/08 12:37 T-Sheet-- Draft Copy was scanned into [employer] and attached to record. gb 12:38 Radiology Report was scanned into [employer] and attached to record. gb Point of Care Testing: Urine Dip: 05/07 13:19 pH: 5; ; Specific [place]: 1.020; Ketones: Small; Glucose: Negative; Protein: Trace; kr3 Leukocytes: Trace; Nitrite: Negative ; Blood: Negative; Bilirubin: Negative ; Urobilinogen: Normal Ranges: Administered Medications: 12:32 Drug: Ondansetron 4 mg Route: IVP; Site: right antecubital; mk4 12:32 Drug: morphine 4 mg [morphine 4 mg/mL intravenous cartridge (1 mL)] Route: IVP; Site: mk4 right antecubital; 13:51 Follow up: Pain 10/29 Adult kr3 12:32 Drug: NS 0.9% 1000 ml [sodium chloride 0.9 % intravenous solution] Route: IV; Rate: mk4 bolus; Site: right antecubital; 13:52 Follow up: IV Status: Infusion discontinued; IV Intake: 300ml kr3 Signatures: Dispatcher [employer] EDMacarena Jain, Reg Reg gb Donna Rosen,RN RN kr3 John Mohamud PA-C PAMakeda ar2 Manuel Ramirez mm15 Nehal Ngo RN RN mk4 The chart was reviewed and I authenticate all verbal orders and agree with the evaluation and treatment provided.Attachments: 13:04 [facility] Payment Agreement mm15 05/08 12:37 T-Sheet-- Draft Copy gb Chart Complete MTDD
--- NOTE | 2016-05-09 14:54 | EDDOCDS ---
Physician Documentation [facility] Name: Gail Cantu Age: 50 yrs Sex: Female : 1965 Arrival Date: 05/07/2016 Time: 10:55 Bed I4 / M4 Private MD: Pan Ledezma, [facility] Disposition: 05/07/16 13:44 Discharged to Home/Self Care. Impression: Upper abdominal pain, unspecified - biliary colic, Fatty (change of) liver, not elsewhere classified. - Condition is Stable. - Discharge Instructions: Biliary Colic. - Prescriptions for Prilosec 20 mg Oral Capsule, Delayed Release(E.C.) - take 1 capsule by ORAL route once daily; 30 capsule. Ultram 50 mg Oral Tablet - take 1 tablet by ORAL route every 6 hours As needed MDD: 4 tabs; 12 tablet. ZOFRAN ODT 4 mg Oral - dissolve 1 tablet by ORAL route every 8 hours As needed do not chew, do not swallow whole; 10 tablet. - Medication Reconciliation, Local Pharmacy Hours form. - Follow up: Pan Ledezma; When: 1 week; Reason: Recheck today's complaints. Follow up: Rayray Carroll MD; When: As needed; Reason: Further diagnostic work-up, Recheck today's complaints. Follow up: Emergency Department; When: As needed; Reason: Fever > 102F, Worsening of conditions. - Problem is new. - Symptoms have improved. Historical: - Allergies: No known drug Allergies; - Home Meds: 1. naproxen 500 mg Oral TbEC 1 tab 2 times per day as needed (Last dose: 05/07/2016 09:00) - PMHx: none; - PSHx: none; - Social history: Smoking status: Patient states was never smoker of tobacco. No barriers to communication noted, The patient speaks fluent Slovenian, Speaks appropriately for age. - Family history: Not pertinent. - : The pt / caregiver states he / she is not on anticoagulants. Home medication list is obtained from the patient. - Exposure Risk Screening:: None identified. 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 4 in. (162.56 cm) (R); Pain 10/10; 10:57 BP 156 / 82 LA Sitting (auto/lg); bnb 13:21 BP 134 / 67; Pulse 65; Resp 18; Temp 97.4(O); Pulse Ox 100% on R/A; Pain 10/10; jml1 13:51 Pain 8/10; kr3 10:57 Body Mass Index 27.64 (73.03 kg, 162.56 cm) bnb MDM: 12:11 IV Saline Lock ordered. ar2 12:11 Undress patient appropriately for examination ordered. ar2 12:11 Ondansetron 4 mg IVP once ordered. ar2 12:11 morphine 4 mg IVP once ordered. ar2 12:12 NS 0.9% 1000 ml IV at bolus once ordered. ar2 12:12 Amylase Ordered. EDMS 12:12 Basic Metabolic Profile Ordered. EDMS 12:12 CBC with Diff Ordered. EDMS 12:12 Lipase Ordered. EDMS 12:12 Liver Profile Ordered. EDMS 12:12 NOTHING BY MOUTH+DIET ordered. EDMS 12:12 Gallbladder US Ordered. EDMS 12:58 Financial registration complete. mm15 13:04 [facility] [place] Payment Agreement was scanned into [employer] and attached to record. mm15 13:07 CBC with Diff Reviewed. ar2 13:07 Liver Profile Reviewed. ar2 13:07 Amylase Reviewed. ar2 13:07 Basic Metabolic Profile Reviewed. ar2 13:07 Lipase Reviewed. ar2 13:10 Urine Dip ordered. ar2 05/08 12:37 T-Sheet-- Draft Copy was scanned into [employer] and attached to record. gb 12:38 Radiology Report was scanned into [employer] and attached to record. gb Point of Care Testing: Urine Dip: 05/07 13:19 pH: 5; ; Specific [place]: 1.020; Ketones: Small; Glucose: Negative; Protein: Trace; kr3 Leukocytes: Trace; Nitrite: Negative ; Blood: Negative; Bilirubin: Negative ; Urobilinogen: Normal Ranges: Administered Medications: 12:32 Drug: Ondansetron 4 mg Route: IVP; Site: right antecubital; mk4 12:32 Drug: morphine 4 mg [morphine 4 mg/mL intravenous cartridge (1 mL)] Route: IVP; Site: mk4 right antecubital; 13:51 Follow up: Pain 10/29 Adult kr3 12:32 Drug: NS 0.9% 1000 ml [sodium chloride 0.9 % intravenous solution] Route: IV; Rate: mk4 bolus; Site: right antecubital; 13:52 Follow up: IV Status: Infusion discontinued; IV Intake: 300ml kr3 Signatures: Dispatcher [employer] EDMacarena Jain, Reg Reg gb Donna Rosen,RN RN kr3 John Mohamud PA-C [employer] ar2 Manuel Ramirez mm15 Nehal Ngo RN RN mk4 The chart was reviewed and I authenticate all verbal orders and agree with the evaluation and treatment provided.Attachments: 13:04 [facility] Payment Agreement mm15 05/08 12:37 T-Sheet-- Draft Copy gb Chart Complete MTDD
--- NOTE | 2016-05-09 14:54 | EDDOCDS ---
Nurse's Notes [facility] Name: Gail Cantu Age: 50 yrs Sex: Female : 1965 Arrival Date: 05/07/2016 Time: 10:55 Bed I4 / M4 Private MD: Pan Ledezma NCFM Diagnosis: Upper abdominal pain, unspecified-biliary colic;Fatty (change of) liver, not elsewhere classified Presentation: 05/07 11:02 Presenting complaint: Patient states: right upper abdominal pain with history of same kr3 for 'quite a while'. recently treated for same pain with antibiotics with no relief. was seen by urology and was told not kidney problem. Has not been able to follow up with PCP. Risk factors: the patient reports no vaginal bleeding. Adult Sepsis Screening: The patient does not have new or worsening altered mentation. Patient's respiratory rate is less than 22. Systolic blood pressure is greater than 100. Patient has a qSOFA score of 0- Negative Sepsis Screen. Suicide/Homicide risk assessment- the patient denies having any suicidal and/or homicidal ideations and does not present with any other emotional, behavioral or mental health complaints. Status: Patient is not a fitness services manager or dependent. Transition of care: patient was not received from another setting of care. 11:02 Acuity: KAT Level 3 kr3 11:02 Method Of Arrival: Walkin/Carried/Asstd kr3 Triage Assessment: 11:05 General: Appears in no apparent distress, comfortable, Behavior is cooperative. Pain: kr3 Location: right upper quadrant Pain currently is 10 out of 10 on a pain scale. Quality of pain is described as sharp. HIV screening NA for this visit Offered previously. Neurological: Level of Consciousness is awake, alert. Respiratory: Respiratory effort is even, unlabored. GI: Reports constipation, Denies diarrhea, nausea, vomiting. : Denies burning with urination, inability to void, urinary frequency, urgency. Derm: Skin is normal. 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 naproxen 500 mg Oral TbEC 1 tab 2 times per day as needed (Last dose: 05/07/2016 09:00) - PMHx: none; - PSHx: none; - Social history: Smoking status: Patient states was never smoker of tobacco. No barriers to communication noted, The patient speaks fluent Danish, Speaks appropriately for age. - Family history: Not pertinent. - : The pt / caregiver states he / she is not on anticoagulants. Home medication list is obtained from the patient. - Exposure Risk Screening:: None identified. Screenin:32 Screening information is obtained from the patient. Fall risk: No risks identified. mk4 Assistance ADL's: requires no assistance with activities of daily living. Abuse/DV Screen: The patient / caregiver reports he/she is: not in a situation that causes fear, pain or injury. Nutritional screening: No deficits noted. Advance Directives: Currently, there is no health care proxy. There is no active DNR order. There is no living will. There is no Power of Floor Hand. home support is adequate. Assessment: 12:32 General: Appears uncomfortable. Pain: Location: right upper quadrant Pain currently is mk4 10 out of 10 on a pain scale. Quality of pain is described as aching, Pain began 3 weeks ago Aggravated by eating. GI: Abdomen is obese, Bowel sounds present X 4 quads. Abd is tender to palpation in right upper quadrant. 13:20 Reassessment: Patient appears in no apparent distress at this time. Respiratory: kr3 Respiratory effort is even, unlabored. Derm: Skin is normal. 13:53 Reassessment: Patient appears in no apparent distress at this time. Pain: Location: kr3 right upper quadrant Pain currently is 8 out of 10 on a pain scale. Vital Signs: 10:57 BP 188 / 112 RA Sitting (auto/lg); Pulse 83; Resp 18; Temp 97.3(O); Pulse Ox 99% on bnb R/A; Weight 73.03 kg (R); Height 5 ft. 4 in. (162.56 cm) (R); Pain 10/10; 10:57 BP 156 / 82 LA Sitting (auto/lg); bnb 13:21 BP 134 / 67; Pulse 65; Resp 18; Temp 97.4(O); Pulse Ox 100% on R/A; Pain 10/10; jml1 13:51 Pain 8/10; kr3 10:57 Body Mass Index 27.64 (73.03 kg, 162.56 cm) [facility] Vitals: 10:57 Log In Time: May 07, 2016 at 10:55. bnb ED Course: 10:56 Patient visited by Kassidy Ribeiro PCA. bnb 10:56 Patient moved to Waiting bnb 10:57 Pan Ledezma is Private Physician. bnb 11:00 Patient moved to Pre RCE bnb 11:04 Triage Initiated kr3 11:33 Patient moved to Triage 1 jb5 11:55 [facility]ud [facility]-C [facility] ar2 11:55 Luke Tan MD is Attending Physician. ar2 11:58 Patient visited by John Mohamud PA-C. ar2 12:09 Patient moved to I4 / M4 jb5 12:21 Amylase Sent. mk4 12:21 Basic Metabolic Profile Sent. mk4 12:21 CBC with Diff Sent. mk4 12:21 Lipase Sent. mk4 12:21 Liver Profile Sent. mk4 12:31 Patient visited by Nehal Ngo RN. mk4 12:32 The patient / caregiver is instructed regarding the plan of care and ED course. mk4 12:32 Inserted saline lock: 20 gauge in right antecubital area and blood collected. mk4 12:36 Patient moved to Ultrasound am17 12:51 Patient moved to I4 / M4 am17 13:04 [facility] Payment Agreement was scanned into [employer] and attached to record. mm15 13:17 Patient visited by Rodríguez Cano. jml1 13:22 Patient visited by Rodríguez Cano. jml1 13:23 Gallbladder US Returned. EDMS 13:43 Pan Ledezma is Referral Physician. ar2 13:43 Rayray Carroll MD is Referral Physician. ar2 13:52 Discontinued lock intact, bleeding controlled, pressure dressing applied, No kr3 redness/swelling at site. No procedures done that require assistance. 05/08 12:37 T-Sheet-- Draft Copy was scanned into [employer] and attached to record. gb 12:38 Radiology Report was scanned into [employer] and attached to record. gb Administered Medications: 05/07 12:32 Drug: Ondansetron 4 mg Route: IVP; Site: right antecubital; mk4 12:32 Drug: morphine 4 mg [morphine 4 mg/mL intravenous cartridge (1 mL)] Route: IVP; Site: mk4 right antecubital; 13:51 Follow up: Pain 8/ Adult kr3 12:32 Drug: NS 0.9% 1000 ml [sodium chloride 0.9 % intravenous solution] Route: IV; Rate: mk4 bolus; Site: right antecubital; 13:52 Follow up: IV Status: Infusion discontinued; IV Intake: 300ml kr3 Point of Care Testing: Urine Dip: 13:19 pH: 5; ; Specific [place]: 1.020; Ketones: Small; Glucose: Negative; Protein: Trace; kr3 Leukocytes: Trace; Nitrite: Negative ; Blood: Negative; Bilirubin: Negative ; Urobilinogen: Normal Ranges: Intake: 13:52 IV: 300.00ml; Total: 300.00ml. kr3 Order Results: Lab Order: Amylase; SPEC'M 05/07/16 12:13 Test: AMYLASE; Value: 38; Range: 25-115; Units: U/L; Status: F Lab Order: Basic Metabolic Profile; SPEC'M 05/07/16 12:13 Test: GLUCOSE, FASTING; Value: 97; Range: 70-105; Units: MG/DL; Status: F Test: BLOOD UREA NITROGEN; Value: 14; Range: 7-18; Units: MG/DL; Status: F Test: CREATININE FOR GFR; Value: 0.66; Range: 0.55-1.02; Units: MG/DL; Status: F Test: GLOMERULAR FILTRATION RATE; Value: > 60.0; Range: >51; Status: F Test: SODIUM LEVEL; Value: 142; Range: 136-145; Units: MEQ/L; Status: F Test: POTASSIUM SERUM; Value: 3.9; Range: 3.5-5.1; Units: MEQ/L; Status: F Test: CHLORIDE LEVEL; Value: 106; Range: 98-107; Units: MEQ/L; Status: F Test: CARBON DIOXIDE LEVEL; Value: 27; Range: 21-32; Units: MEQ/L; Status: F Test: ANION GAP; Value: 9; Range: 8-16; Units: MEQ/L; Status: F Test: CALCIUM LEVEL; Value: 8.8; Range: 8.5-10.1; Units: MG/DL; Status: F Test Note: ; Units are mL/min/1.73 m2 Chronic Kidney Disease Staging per NKF: Stage I & II GFR >=60 Normal to Mildly Decreased Stage III GFR 30-59 Moderately Decreased Stage IV GFR 15-29 Severely Decreased Stage V GFR <15 Very Little GFR Left ESRD GFR <15 on CHILLER TECHNICIAN Lab Order: CBC with Diff; SPEC'M 05/07/16 12:13 Test: WHITE BLOOD COUNT; Value: 6.2; Range: 4.0-10.0; Units: K/mm3; Status: F Test: RED BLOOD COUNT; Value: 4.68; Range: 4.00-5.40; Units: M/mm3; Status: F Test: HEMOGLOBIN; Value: 13.4; Range: 12.0-16.0; Units: g/dl; Status: F Test: HEMATOCRIT; Value: 40.8; Range: 36.0-47.0; Units: %; Status: F Test: MEAN CORPUSCULAR VOLUME; Value: 87.2; Range: 80.0-96.0; Units: fl; Status: F Test: MEAN CORPUSCULAR HEMOGLOBIN; Value: 28.7; Range: 27.0-33.0; Units: pg; Status: F Test: MEAN CORPUSCULAR HGB CONC; Value: 32.9; Range: 32.0-36.5; Units: g/dl; Status: F Test: RED CELL DISTRIBUTION WIDTH; Value: 13.5; Range: 11.5-14.5; Units: %; Status: F Test: PLATELET COUNT, AUTOMATED; Value: 213; Range: 150-450; Units: k/mm3; Status: F Test: NEUTROPHILS %; Value: 75.0; Range: 36.0-66.0; Abnormal: Above high normal; Units: %; Status: F Test: LYMPH %; Value: 17.7; Range: 24.0-44.0; Abnormal: Below low normal; Units: %; Status: F Test: MONO %; Value: 4.6; Range: 0.0-5.0; Units: %; Status: F Test: EOS %; Value: 0.7; Range: 0.0-3.0; Units: %; Status: F Test: BASO %; Value: 0.3; Range: 0.0-1.0; Units: %; Status: F Test: LARGE UNSTAINED CELL %; Value: 1.7; Range: 0.0-4.0; Units: %; Status: F Test: NEUTROPHILS #; Value: 4.7; Range: 1.8-7.7; Units: K/mm3; Status: F Test: LYMPH #; Value: 1.1; Range: 1.5-4.5; Abnormal: Below low normal; Units: K/mm3; Status: F Test: MONO #; Value: 0.3; Range: 0.0-0.8; Units: K/mm3; Status: F Test: EOS #; Value: 0.0; Range: 0.0-0.50; Units: K/mm3; Status: F Test: BASO #; Value: 0.0; Range: 0.0-0.2; Units: K/mm3; Status: F Test: LARGE UNSTAINED CELL #; Value: 0.1; Range: 0.0-0.4; Units: K/mm3; Status: F Lab Order: Lipase; SPEC'M 05/07/16 12:13 Test: LIPASE; Value: 225; Range: 73-393; Units: U/L; Status: F Lab Order: Liver Profile; SPEC'M 05/07/16 12:13 Test: AST/SGOT; Value: 10; Range: 15-37; Abnormal: Below low normal; Units: U/L; Status: F Test: ALT/SGPT; Value: 12; Range: 12-78; Units: U/L; Status: F Test: ALKALINE PHOSPHATASE; Value: 53; Range: 45-117; Units: U/L; Status: F Test: BILIRUBIN,TOTAL; Value: 0.5; Range: 0.2-1.0; Units: MG/DL; Status: F Test: BILIRUBIN,DIRECT; Value: < 0.1; Range: 0.0-0.2; Units: MG/DL; Status: F Test: TOTAL PROTEIN; Value: 7.5; Range: 6.4-8.2; Units: GM/DL; Status: F Test: ALBUMIN; Value: 3.9; Range: 3.2-5.2; Units: GM/DL; Status: F Test: ALBUMIN/GLOBULIN RATIO; Value: 1.08; Range: 1.00-1.93; Status: F Radiology Order: Gallbladder US Test: Gallbladder US REASON FOR EXAMINATION: Biliary Colic; Clinical: Biliary colic and abdominal pain.; ; Technique: Bower scale ultrasound using curved array transducer.; ; Findings: The liver and pancreas are normal in contour, size, and echogenicity; without focal hepatic or pancreatic lesions identified. The gallbladder is; normal without gallstones, wall thickening or pericholecystic fluid. No biliary; ductal dilatation is appreciated, and the common bile duct measures 4.9 mm; diameter. The right kidney is normal in reniform shape without hydronephrosis; and measures 11.0 x 5.7 x 5.4 cm. No ascites. Visualized portions of the; abdominal aorta normal.; ; Impression:; Normal right upper quadrant and gallbladder abdominal ultrasound.; ; ; Signed by; Alfredo Bess MD 05/07/2016 12:55 P; Outcome: 13:20 Ultrasound Study completed. kr3 13:44 Discharge ordered by Provider. ar2 13:52 Discharge Assessment: patient administered narcotics - no. The following High Risk kr3 Discharge criteria are identified: None. Discharged to home ambulatory. Condition: stable. Discharge instructions given to patient, Instructed on discharge instructions, follow up and referral plans. medication usage, Demonstrated understanding of instructions, medications, Pt was receptive of discharge instructions/ teaching. Prescriptions given X 3. Property sent home with patient. 13:53 Patient left the ED. kr3 Signatures: Dispatcher [employer] EDMS Macarena Demarco, Reg Reg gb Donna Rosen,RN RN kr3 Nery Benson, TIRE STRIPPER TIRE STRIPPER jb5 John Mohamud, PAMakeda PA-C ar2 Rodríguez Cano jml1 Manuel Ramirez mm15 Nehal Ngo RN RN [email or web address] Cecy Kaufman am17 Kassidy Ribeiro, TIRE STRIPPER TIRE STRIPPER bnb Chart Complete MTDD
== END 2016-05-07 13:53 | disposition home or self-care (01) ==
LOC: M ED 10:55
DX: K80.20 Calculus of gallbladder without cholecystitis without obstruction (principal); K76.0 Fatty (change of) liver, not elsewhere classified; Z79.899 Other long term (current) drug therapy
CPT/HCPCS: 36415; 76705; 80048; 80076; 82150; 83690; 85025; 96361; 96374; 96375; 99284; J2405

== ENCOUNTER → 2016-05-22 | Outpatient (CLI) | payer BC ==
[~2016-05-22] MED LIST: MACR100C3 PO; OMEP40CA2 PO; TRAM50TA2 PO
--- NOTE | 2016-05-22 10:45 | REP ---
Hepatobiliary scan and gallbladder ejection fraction: History: Right upper quadrant pain. Technique: 6.3 mCi of technetium-99m mebrofenin was injected and sequential anterior images are acquired. 65 minutes after the mebrofenin injection, the patient consumed 8 ounces Ensure and an additional 60 minutes of imaging was acquired. Regions of interest are plotted around the gallbladder. Findings: The initial hepatocellular parenchymal uptake phase is normal and homogeneous. Intra- and extra-hepatic bile ducts and duodenum are labeled by the 15 -minute image. The gallbladder is first labeled on the 20 -minute image. There is normal washout from the liver parenchyma into the gallbladder and small intestine on subsequent images. The gallbladder ejection fraction is normal at 95 %. Values greater than 35 % are considered normal with this technique. Impression: Normal hepatobiliary scan and gallbladder ejection fraction. Signed by Champ Benjamin MD 05/22/2016 10:37 A
== END ==
LOC: M RAD 07:32
PROVIDERS: ATTEND Surgery
DX: R10.9 Unspecified abdominal pain (principal)

== ENCOUNTER 2016-05-24 13:51 | Emergency (ER) | payer BC ==
[~2016-05-24] VITALS: Ht 162.6 cm; Wt 108.9 kg
[2016-05-24] MEDS ORDERED: TRAM50TA2 PO (14:01)
[2016-05-24] MEDS ORDERED: OMEP40CA2 PO (14:01)
[2016-05-24] MEDS ORDERED: KETOROLAC 30 MG/ML VIAL (J1885) IV ONE (14:45)
[2016-05-24] MEDS ORDERED: ONDANSETRON 4MG/2ML VIAL (J2405) IV ONE (14:45)
[2016-05-24 15:17] LABS: BASO % 0.4 % (0.0-1.0); EOS # 0.1 K/mm3 (0.0-0.50); EOS % 1.5 % (0.0-3.0); LARGE UNSTAINED CELL # 0.1 K/mm3 (0.0-0.4); LARGE UNSTAINED CELL % 1.8 % (0.0-4.0); LYMPH # 1.4 K/mm3 (1.5-4.5); LYMPH % 19.4 % (24.0-44.0); MEAN CORPUSCULAR HEMOGLOBIN 29.1 pg (27.0-33.0); MEAN CORPUSCULAR HGB CONC 33.5 g/dl (32.0-36.5); MEAN CORPUSCULAR VOLUME 86.8 fl (80.0-96.0); MONO # 0.4 K/mm3 (0.0-0.8); NEUTROPHILS # 4.7 K/mm3 (1.8-7.7); NEUTROPHILS % 70.9 % (36.0-66.0); PLATELET COUNT, AUTOMATED 217 k/mm3 (150-450); RED CELL DISTRIBUTION WIDTH 13.4 % (11.5-14.5); WHITE BLOOD COUNT 6.6 K/mm3 (4.0-10.0)
[2016-05-24 15:36] LABS: ALBUMIN 3.3 GM/DL (3.2-5.2); ALBUMIN/GLOBULIN RATIO 0.89 (1.00-1.93); ALKALINE PHOSPHATASE 67 U/L (45-117); ALT/SGPT 18 U/L (12-78); ANION GAP 8 MEQ/L (8-16); AST/SGOT 14 U/L (15-37); BILIRUBIN,DIRECT < 0.1 MG/DL (0.0-0.2); BILIRUBIN,TOTAL 0.3 MG/DL (0.2-1.0); BLOOD UREA NITROGEN 14 MG/DL (7-18); CALCIUM LEVEL 8.6 MG/DL (8.5-10.1); CARBON DIOXIDE LEVEL 28 MEQ/L (21-32); CHLORIDE LEVEL 106 MEQ/L (98-107); GLOMERULAR FILTRATION RATE > 60.0 (>51); GLUCOSE, FASTING 107 MG/DL (70-105); POTASSIUM SERUM 3.7 MEQ/L (3.5-5.1); SODIUM LEVEL 142 MEQ/L (136-145)
[2016-05-24] MEDS ORDERED: MACR100C3 PO (15:44)
[2016-05-24 16:10] VITALS: BP 118/66
== END 2016-05-24 16:20 | disposition home or self-care (01) ==
LOC: M ED 14:37
DX: N30.00 Acute cystitis without hematuria (principal); R10.9 Unspecified abdominal pain; G89.29 Other chronic pain; E66.9 Obesity, unspecified; Z79.899 Other long term (current) drug therapy
CPT/HCPCS: 80048; 80076; 81001; 83690; 85025; 87086; 96374; 96376; 99283; J1885; J2405

== ENCOUNTER 2016-11-30 14:46 | Emergency (ER) | payer BC ==
[~2016-11-30] VITALS: Ht 162.6 cm; Wt 89.1 kg
[~2016-11-30 14:46] MED LIST changes: -MACR100C3 PO; +MACR100C43 PO
[2016-11-30] MEDS ORDERED: ADACEL/BOOSTRIX VACCINE (DIPHTH/PERTUSS/ACELL/TETANUS)0.5ML SYR (90715) IM ONE (17:30)
--- NOTE | 2016-11-30 18:45 | REP ---
Clinical: Trauma. Technique: AP view of the pelvis. Findings: Age-related changes are appreciated. No obvious acute fracture or dislocation. The hip joints appear symmetric. The surrounding soft tissues are grossly unremarkable. Impression: Age-related degenerative changes. No acute fracture dislocation appreciated. Signed by Alfredo Bess MD 11/30/2016 06:36 P
--- NOTE | 2016-11-30 18:46 | REP ---
Clinical: Trauma. Technique: AP, lateral, bilateral oblique views of the left elbow. Findings: Age-related degenerative changes are appreciated including small marginal osteophytes primarily involving the proximal ulna at the olecranon and coronoid process. AP view demonstrates subtle lucency through one osteophyte at the coronoid process which is likely degenerative although small fractured osteophyte cannot be excluded. No further acute fracture or dislocation is appreciated or suggested. Anterior and posterior fat pads are in normal position. Impression: Age-related degenerative changes. No obvious acute fracture or dislocation. Cannot exclude a very small fractured osteophyte of the coronoid process. Signed by Alfredo Bess MD 11/30/2016 06:39 P
--- NOTE | 2016-11-30 18:47 | REP ---
Clinical: Trauma. Technique: Frontal view of the chest with multiple views of the right hemithorax. Findings: Frontal view of the chest demonstrates no acute cardiopulmonary process. Multiple views of the right hemithorax demonstrates no obvious acute rib fracture or pathology. Impression: Normal right rib series Signed by Alfredo Bess MD 11/30/2016 06:39 P
[2016-11-30 19:09] VITALS: BP 148/71
== END 2016-11-30 19:11 | disposition home or self-care (01) ==
LOC: M ED 14:46
DX: S50.02XA Contusion of left elbow, initial encounter (principal); S20.219A Contusion of unspecified front wall of thorax, initial encounter; V01.00XA Pedestrian on foot injured in collision with pedal cycle in nontraffic accident, initial encounter; Y92.89 Other specified places as the place of occurrence of the external cause; Y93.01 Activity, walking, marching and hiking; Y99.8 Other external cause status; E66.9 Obesity, unspecified

== ENCOUNTER 2018-07-15 11:31 | Emergency (ER) | payer OTHER, BC ==
[~2018-07-15] VITALS: Ht 162.6 cm; Wt 90.9 kg
[2018-07-15 11:31] VITALS: BP 153/79
--- NOTE | 2018-07-15 12:36 | REP ---
LEFT ANKLE, FOUR VIEWS: Four views left ankle performed. No acute fracture or dislocation is seen. The ankle mortise is anatomic. Small calcific density adjacent to the medial malleolus may represent an old avulsion fracture. There is mild to moderate calcaneal spurring. There is dorsal navicular spurring. IMPRESSION: Degenerative changes. No acute fracture or dislocation. Electronically Signed by Darien Bower MD 07/18/2018 01:32 P
== END 2018-07-15 12:49 | disposition home or self-care (01) ==
LOC: M ED 11:31
DX: S99.912A Unspecified injury of left ankle, initial encounter (principal); X50.1XXA Overexertion from prolonged static or awkward postures, initial encounter; Z92.89 Personal history of other medical treatment; Z93.9 Artificial opening status, unspecified; Z99.0 Dependence on aspirator

== ENCOUNTER → 2020-02-12 | Outpatient (CLI) | payer OTHER ==
[~2020-02-12] MED LIST changes: -OMEP40CA2 PO; +OMEP40CA97 PO
--- NOTE | 2020-02-12 19:43 | ECGEPIP ---
[facility] Test Date: 2020-02-12 Pat Name: LORI MORALES Department: Room: - Gender: Female Rrt: ANJELICA : 1965 Requested By: Pritesh Olivares Order Number: [id number] Reading MD: Josemanuel Orozco Measurements Intervals [place] Rate: 82 P: 47 SD: 164 QRS: -9 QRSD: 81 T: 54 QT: 369 QTc: 433 Interpretive Statements SINUS RHYTHM LOW QRS VOLTAGE IN PRECORDIAL LEADS POOR R WAVE PROGRESSION NO PRIOR Electronically Signed on 02-12-2020 19:43:10 EST by Josemanuel Orozco
== END ==
LOC: M LAB 15:13
PROVIDERS: ATTEND Anesthesiology
DX: Z01.818 Encounter for other preprocedural examination (principal); R94.31 Abnormal electrocardiogram [ECG] [EKG]; Z87.442 Personal history of urinary calculi

== ENCOUNTER → 2020-02-17 | Outpatient (CLI) | payer OTHER, BC | LOC: M LABSMTC 08:14 | PROVIDERS: ATTEND Anesthesiology | DX: Z01.812 Encounter for preprocedural laboratory examination (principal); Z20.828 Contact with and (suspected) exposure to other viral communicable diseases ==

== ENCOUNTER 2020-02-20 05:58 | Day surgery (SDC) | payer OTHER ==
[~2020-02-20] VITALS: Ht 162.6 cm; Wt 134.6 kg
[2020-02-20] MEDS ORDERED: dexameTHASONE 10MG/1ML VIAL PRES.FREE (J1100 PER 1MG) As Ordered ONE (06:42)
[2020-02-20] MEDS ORDERED: fentaNYL 100 MCG/2 ML INJECTION (J3010) As Ordered ONE ×3 (06:42→08:03)
[2020-02-20] MEDS ORDERED: EPINEPHrine INJ 1 MG/ML 1ML AMP As Ordered ONE (06:42)
[2020-02-20] MEDS ORDERED: MIDAZOLAM INJ 2MG/2ML VIAL (J2250 PER 1MG) As Ordered ONE ×2 (06:42→07:12)
[2020-02-20] MEDS ORDERED: LR 1,000 ML IV ONE (07:00)
[2020-02-20] MEDS ORDERED: propofoL 200 MG/20 ML VIAL As Ordered ONE (07:12)
[2020-02-20] MEDS ORDERED: LIDOCAINE 2% 100MG/5ML SDV (FOR ANES.) As Ordered ONE (07:12)
[2020-02-20] MEDS ORDERED: BUPIVACAINE HCL 0.5% 30 ML VIAL As Ordered ONE (07:17)
[2020-02-20] MEDS ORDERED: ROCURONIUM BROMIDE 50 MG/5 ML VIAL As Ordered ONE (07:30)
[2020-02-20] MEDS ORDERED: ONDANSETRON 4MG/2ML VIAL As Ordered ONE (07:44)
[2020-02-20] MEDS ORDERED: dexameTHASONE 4 MG/ML 1ML VIAL (J1100 PER 1MG) As Ordered ONE (07:44)
[2020-02-20] MEDS ORDERED: ACETAMINOPHEN 1000MG 100ML IV BTL (OFIRMEV) (J0131 PER 10MG) As Ordered ONE (07:53)
[2020-02-20] MEDS ORDERED: SUGAMMADEX SODIUM 500 MG/5 ML VIAL (BRIDION) As Ordered ONE (07:53)
[2020-02-20] MEDS ORDERED: fentaNYL 100 MCG/2 ML INJECTION (J3010) IV PRN (09:00)
[2020-02-20] MEDS ORDERED: LR 1,000 ML IV SCH ×2 (09:00)
[2020-02-20] MEDS ORDERED: ONDANSETRON 4MG/2ML VIAL IV PRN (09:00)
[2020-02-20] MEDS ORDERED: oxyCODONE 5MG TAB PO PRN (09:00)
[2020-02-20 10:52] VITALS: BP 139/82
--- NOTE | 2020-02-21 07:55 | RO ---
OPERATIVE NOTE DATE OF OPERATION: 02/20/2020 PREOPERATIVE DIAGNOSES: 1. Right knee medial meniscus tear. 2. Right knee osteoarthritis. POSTOPERATIVE DIAGNOSES: 1. Right knee medial and lateral meniscus tear. 2. Right knee osteoarthritis. PROCEDURES: 1. Right knee arthroscopic partial medial and lateral meniscectomy. 2. Right knee arthroscopic chondroplasty. SURGEON: Sunny Celis MD CERTIFIED CYTOTECHNOLOGIST: None. ANESTHESIA: General. IV FLUIDS: Lactated Ringer's. ESTIMATED BLOOD LOSS: Less than 5 mL. CLOSURE: Nylon. PROCEDURE: The patient was identified in the preoperative holding area. The right leg was marked. She was brought to the operating room and placed supine on well padded OR table. After induction of general anesthesia I performed an examination with the patient having full extension, flexion to 1 30 degrees, stable to varus and valgus stress and grade 1A Bill. A well padded tourniquet was applied to the right thigh. No IV antibiotics were indicated. The right leg was prepped and draped in normal sterile fashion. Prior to incision a time out was performed per hospital protocol. The right leg was exsanguinated with Esmarch bandage and tourniquet inflated to 300 mmHg. The knee was insufflated with lactated Ringer's. A standard anterolateral portal localized with spinal needle, incision made with 11-made. 30-degree arthroscope introduced into the joint and diagnostic arthroscopy carried out. 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 Inspection of the patella revealed diffuse grade 1, borderline grade 2 chondromalacia and then just lateral to the midline in the area grade 2 versus grade 3. The suprapatellar pouch had synovitis but no loose bodies. Medial gutter was entered where there were no loose bodies but there was a small osteophyte off the medial femoral condyle. Medial compartment was then entered and on initial inspection there were no obvious medial meniscus tears. There was grade 2 chondromalacia on the medial femoral condyle, primarily grade 1 in the tibial plateau, one area of grade 2 at the anterior aspect. There was a small ligamentum mucosum. An anteromedial portal was developed under direct visualization and on probing of the posterior horn medial meniscus there was an unstable tear through the inferior leaflet. The root was stable. I then performed a partial medial meniscectomy using meniscal biter, trimming this back to stable rim. I removed about half of the posterior horn. At the junction of the posterior horn and body the tear was balanced out with the biter, I removed approximately 25% of the body of the medial meniscus. On completion of the partial meniscectomy the probe was used to evaluate all remaining medial meniscus tissue and this was felt to be stable. Chondroplasty was performed of the medial femoral condyle and medial tibial plateau with shaver. All loose fragments were removed with shaver. The ligamentum mucosum was removed with shaver. The ACL was probed and found to be under good tension. The lateral gutter was inspected, there were no loose bodies. The leg was brought into figure-four position where there was grade 2 chondromalacia in the lateral tibial plateau, grade 1 in lateral femoral condyle. 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 The root was stable. The meniscal biter was used to perform partial lateral meniscectomy. I removed approximately 50% of the lateral meniscus. At the completion of the partial lateral meniscectomy the remaining meniscal tissue was stable. The horizontal cleavage tear extended almost to the capsule so I did leave her with an intact peripheral rim. Chondroplasty to the tibial plateau with a shaver. The knee was brought into full extension and chondroplasty of the patella was performed with shaver. The knee was irrigated and drained. Portals were closed with nylon sutures. Tourniquet was let down at 22 minutes with excellent reperfusion of the knee. I injected a total of 30 mL of 0.5% Marcaine without Epinephrine, some at each portal and the rest into the joint. Bulky sterile dressing was applied. Drapes were taken down. All counts were correct x2. No complications. She was extubated and transferred to the PACU in stable condition. She will need full dose Aspirin once daily for a month for DVT prophylaxis.
== END 2020-02-20 10:52 | disposition home or self-care (01) ==
LOC: M SDC 05:58
PROVIDERS: ATTEND Orthopaedic Surgery
DX: M23.231 Derangement of other medial meniscus due to old tear or injury, right knee (principal); M25.561 Pain in right knee
CPT/HCPCS: 29880; J0131; J1100; J2250; J2405; J3010

== ENCOUNTER 2021-09-24 17:40 | Emergency (ER) | payer OTHER ==
[~2021-09-24] VITALS: Ht 162.6 cm; Wt 133.0 kg
[~2021-09-24 17:40] MED LIST changes: +OMEP40CA4 PO; -OMEP40CA97 PO
[2021-09-24] MEDS ORDERED: NAPR-885 (17:59)
[2021-09-24 22:23] VITALS: BP 139/88
== END 2021-09-24 22:24 | disposition home or self-care (01) ==
LOC: M ED 17:40
DX: R22.41 Localized swelling, mass and lump, right lower limb (principal)

== ENCOUNTER → 2021-10-26 | Outpatient (CLI) | payer OTHER ==
[~2021-10-26] MED LIST changes: +NAPR-885
== END ==
LOC: M LABSMTC 11:44
PROVIDERS: ATTEND Anesthesiology
DX: Z20.828 Contact with and (suspected) exposure to other viral communicable diseases (principal); Z11.59 Encounter for screening for other viral diseases

== ENCOUNTER 2021-10-30 07:45 | Day surgery (SDC) | payer OTHER ==
[~2021-10-30] VITALS: Ht 162.6 cm; Wt 130.2 kg
[~2021-10-30 07:45] MED LIST changes: +LIDOCAINE 2% 100MG/5ML SDV (FOR ANES.) As Ordered ONE; +NS 1,000 ML IV ONE; +propofoL 200 MG/20 ML VIAL As Ordered ONE
[2021-10-30] MEDS ORDERED: LABETALOL 100MG/20ML VIAL As Ordered ONE (09:16)
[2021-10-30] MEDS ORDERED: propofoL 200 MG/20 ML VIAL As Ordered ONE (09:16)
[2021-10-30 09:50] VITALS: BP 108/53
== END 2021-10-30 09:53 | disposition home or self-care (01) ==
LOC: M OPP 07:45
PROVIDERS: ATTEND Surgery
DX: Z12.11 Encounter for screening for malignant neoplasm of colon (principal); K57.30 Diverticulosis of large intestine without perforation or abscess without bleeding; E66.01 Morbid (severe) obesity due to excess calories; Z96.651 Presence of right artificial knee joint; Z82.49 Family history of ischemic heart disease and other diseases of the circulatory system; Z83.3 Family history of diabetes mellitus

== ENCOUNTER → 2021-12-01 | Outpatient (CLI) | payer OTHER ==
[~2021-12-01] MED LIST changes: -LIDOCAINE 2% 100MG/5ML SDV (FOR ANES.) As Ordered ONE; -NS 1,000 ML IV ONE; -propofoL 200 MG/20 ML VIAL As Ordered ONE
== END ==
LOC: M WHC 14:21
PROVIDERS: ATTEND Physician Assistant
DX: Z12.31 Encounter for screening mammogram for malignant neoplasm of breast (principal); R92.8 Other abnormal and inconclusive findings on diagnostic imaging of breast

== ENCOUNTER → 2022-01-07 | Outpatient (CLI) | payer OTHER | LOC: M WHC 08:57 | PROVIDERS: ATTEND Physician Assistant | DX: R92.2 Inconclusive mammogram (principal) ==

== ENCOUNTER → 2022-01-08 | Outpatient (REF) | payer OTHER ==
[2022-01-08 18:38] LABS: HEMATOCRIT 44.1 % (36.0-47.0); HEMOGLOBIN 13.9 g/dl (12.0-15.5); MEAN CORPUSCULAR HEMOGLOBIN 28.8 pg (27.0-33.0); MEAN CORPUSCULAR HGB CONC 31.5 g/dl (32.0-36.5); MEAN CORPUSCULAR VOLUME 91.5 fl (80.0-96.0); PLATELET COUNT, AUTOMATED 203 10^3/uL (150-450); RED BLOOD COUNT 4.82 10^6/uL (4.00-5.40); WHITE BLOOD COUNT 5.4 10^3/uL (4.0-10.0)
[2022-01-08 19:19] LABS: HEMOGLOBIN A1c 6.6 %
== END ==
LOC: M LAB REF 16:30
PROVIDERS: ATTEND Physician Assistant
DX: R73.01 Impaired fasting glucose (principal)

== ENCOUNTER → 2022-03-01 | Outpatient (CLI) | payer OTHER ==
[~2022-03-01] MED LIST changes: +CVS5000S2 PO; +D-3-50003 PO; +MULTCHW14 PO
== END ==
LOC: M LABSMTC 11:21
PROVIDERS: ATTEND Anesthesiology
DX: Z01.812 Encounter for preprocedural laboratory examination (principal); Z20.822 Contact with and (suspected) exposure to COVID-19

== ENCOUNTER 2022-03-06 09:21 | Day surgery (SDC) | payer OTHER ==
[~2022-03-06] VITALS: Ht 162.6 cm; Wt 127.5 kg
[~2022-03-06 09:21] MED LIST changes: +NS 1,000 ML IV ONE
[2022-03-06] MEDS ORDERED: LIDOCAINE 2% 100MG/5ML SDV (FOR ANES.) As Ordered ONE (09:39)
[2022-03-06] MEDS ORDERED: propofoL 200 MG/20 ML VIAL As Ordered ONE ×2 (09:39→10:37)
[2022-03-06] MEDS ORDERED: fentaNYL 100 MCG/2 ML INJECTION As Ordered ONE (10:27)
[2022-03-06 10:55] VITALS: BP 142/79
== END 2022-03-06 11:09 | disposition home or self-care (01) ==
LOC: M OPP 09:21
PROVIDERS: ATTEND Surgery
DX: Z01.818 Encounter for other preprocedural examination (principal); K22.89 Other specified disease of esophagus; K29.70 Gastritis, unspecified, without bleeding; M17.0 Bilateral primary osteoarthritis of knee
CPT/HCPCS: 43239; 88305; J3010

== ENCOUNTER → 2022-04-01 | Outpatient (CLI) | payer OTHER ==
[~2022-04-01] MED LIST changes: -NS 1,000 ML IV ONE
[2022-04-01 10:07] LABS: BASO % 0.4 % (0.0-1.0); EOS # 0.1 10^3/uL (0.0-0.5); EOS % 1.9 % (0.0-3.0); HEMATOCRIT 42.2 % (36.0-47.0); HEMOGLOBIN 13.3 g/dl (12.0-15.5); LYMPH % 15.5 % (24.0-44.0); MEAN CORPUSCULAR HEMOGLOBIN 28.2 pg (27.0-33.0); MEAN CORPUSCULAR HGB CONC 31.5 g/dl (32.0-36.5); MEAN CORPUSCULAR VOLUME 89.6 fl (80.0-96.0); MONO # 0.6 10^3/uL (0.0-0.8); MONO % 9.2 % (2.0-8.0); NEUTROPHILS # 4.9 10^3/uL (1.5-8.5); NEUTROPHILS % 72.9 % (36.0-66.0); PLATELET COUNT, AUTOMATED 186 10^3/uL (150-450); RED BLOOD COUNT 4.71 10^6/uL (4.00-5.40); WHITE BLOOD COUNT 6.7 10^3/uL (4.0-10.0)
[2022-04-01 10:23] LABS: BLOOD UREA NITROGEN 12 MG/DL (9-23); CALCIUM LEVEL 8.4 MG/DL (8.5-10.1); CARBON DIOXIDE LEVEL 32 MMOL/L (20-31); CHLORIDE LEVEL 105 MMOL/L (98-107); CHOLESTEROL LEVEL 189 MG/DL (<200); CHOLESTEROL RISK RATIO 3.72 (<5); CREATININE FOR GFR 0.57 MG/DL (0.55-1.30); GLOMERULAR FILTRATION RATE > 60.0 (>51); GLUCOSE, FASTING 114 MG/DL (60-100); HDL CHOLESTEROL 50.8 MG/DL (>40); LDL CHOLESTEROL 119.2 MG/DL (<100); NON-HDL-C 138 MG/DL; POTASSIUM SERUM 4.2 MMOL/L (3.5-5.1); SODIUM LEVEL 141 MMOL/L (136-145); TRIGLYCERIDES LEVEL 95 MG/DL (<150)
[2022-04-01 11:00] LABS: HEPATITIS C VIRUS ABY INDEX 0.1 INDEX (<0.8)
== END ==
LOC: M EKG 08:58
PROVIDERS: ATTEND Physician Assistant
DX: Z01.818 Encounter for other preprocedural examination (principal); R03.0 Elevated blood-pressure reading, without diagnosis of hypertension; E11.9 Type 2 diabetes mellitus without complications

== ENCOUNTER → 2022-07-08 | Outpatient (REF) | payer OTHER ==
[2022-07-08 18:23] LABS: MAU/CREAT RATIO 5.6 MCG/MG (0.0-30.0)
== END ==
LOC: M LAB REF 16:31
PROVIDERS: ATTEND Physician Assistant
DX: E11.9 Type 2 diabetes mellitus without complications (principal)

== ENCOUNTER → 2022-08-13 | Outpatient (REF) | payer OTHER | LOC: M LAB REF 17:14 | PROVIDERS: ATTEND Physician Assistant | DX: Z12.4 Encounter for screening for malignant neoplasm of cervix (principal); Z11.3 Encounter for screening for infections with a predominantly sexual mode of transmission ==

== ENCOUNTER → 2022-11-17 | Outpatient (CLI) | payer OTHER ==
[2022-11-17 09:45] LABS: HEMOGLOBIN 12.9 g/dl (12.0-15.5); MEAN CORPUSCULAR HEMOGLOBIN 28.8 pg (27.0-33.0); MEAN CORPUSCULAR HGB CONC 31.5 g/dl (32.0-36.5); MEAN CORPUSCULAR VOLUME 91.5 fl (80.0-96.0); PLATELET COUNT, AUTOMATED 157 10^3/uL (150-450); RED BLOOD COUNT 4.48 10^6/uL (4.00-5.40); WHITE BLOOD COUNT 3.5 10^3/uL (4.0-10.0)
== END ==
LOC: M LAB 08:59
PROVIDERS: ATTEND Physician Assistant
DX: D72.819 Decreased white blood cell count, unspecified (principal); R89.9 Unspecified abnormal finding in specimens from other organs, systems and tissues; Z98.84 Bariatric surgery status

== ENCOUNTER → 2023-01-11 | Outpatient (REF) | payer OTHER ==
[2023-01-11 17:24] LABS: BASO % 0.8 % (0.0-1.0); EOS # 0.1 10^3/uL (0.0-0.5); EOS % 1.5 % (0.0-3.0); HEMATOCRIT 40.9 % (36.0-47.0); HEMOGLOBIN 13.4 g/dl (12.0-15.5); LYMPH # 1.1 10^3/uL (1.5-5.0); LYMPH % 27.4 % (24.0-44.0); MEAN CORPUSCULAR HEMOGLOBIN 29.7 pg (27.0-33.0); MEAN CORPUSCULAR HGB CONC 32.8 g/dl (32.0-36.5); MEAN CORPUSCULAR VOLUME 90.7 fl (80.0-96.0); MONO # 0.3 10^3/uL (0.0-0.8); MONO % 7.7 % (2.0-8.0); NEUTROPHILS # 2.4 10^3/uL (1.5-8.5); NEUTROPHILS % 62.1 % (36.0-66.0); PLATELET COUNT, AUTOMATED 183 10^3/uL (150-450); RED BLOOD COUNT 4.51 10^6/uL (4.00-5.40); WHITE BLOOD COUNT 3.9 10^3/uL (4.0-10.0)
== END ==
LOC: M LAB REF 16:21
PROVIDERS: ATTEND Nurse Practitioner Family
DX: D72.819 Decreased white blood cell count, unspecified (principal)

== ENCOUNTER → 2023-02-02 | Outpatient (CLI) | payer OTHER ==
[2023-02-02 11:48] LABS: BASO % 0.5 % (0.0-1.0); EOS # 0.1 10^3/uL (0.0-0.5); EOS % 1.6 % (0.0-3.0); HEMATOCRIT 40.6 % (36.0-47.0); LYMPH % 27.3 % (24.0-44.0); MEAN CORPUSCULAR HEMOGLOBIN 29.5 pg (27.0-33.0); MEAN CORPUSCULAR VOLUME 92.1 fl (80.0-96.0); MONO # 0.3 10^3/uL (0.0-0.8); MONO % 7.8 % (2.0-8.0); NEUTROPHILS # 2.3 10^3/uL (1.5-8.5); NEUTROPHILS % 62.5 % (36.0-66.0); PLATELET COUNT, AUTOMATED 187 10^3/uL (150-450); RED BLOOD COUNT 4.41 10^6/uL (4.00-5.40); WHITE BLOOD COUNT 3.7 10^3/uL (4.0-10.0)
[2023-02-02 12:22] LABS: ALBUMIN 3.4 G/DL (3.2-5.2); ALKALINE PHOSPHATASE 87 U/L (46-116); ALT/SGPT 19 U/L (7.0-40); AST/SGOT 22 U/L (<34); BILIRUBIN,TOTAL 0.6 MG/DL (0.3-1.2); BLOOD UREA NITROGEN 13 MG/DL (9-23); CALCIUM LEVEL 8.8 MG/DL (8.5-10.1); CARBON DIOXIDE LEVEL 31 MMOL/L (20-31); CHLORIDE LEVEL 107 MMOL/L (98-107); CREATININE FOR GFR 0.51 MG/DL (0.55-1.30); GLOMERULAR FILTRATION RATE > 60.0 (>51); GLUCOSE, FASTING 79 MG/DL (60-100); POTASSIUM SERUM 4.3 MMOL/L (3.5-5.1); SODIUM LEVEL 145 MMOL/L (136-145)
[2023-02-02 12:23] LABS: THYROID STIMULATING HORMONE 1.696 uIU/ML (0.55-4.78)
[2023-02-02 12:48] LABS: HIV 1&2 SCREEN NEGATIVE (NEGATIVE)
[2023-02-03 16:09] LABS: EBV VIRAL CAPSID AG IgG < 18.0 U/mL (0.0-17.9); EBV VIRAL CAPSID AG IgM <36.0 U/mL (0.0-35.9)
== END ==
LOC: M WUC 08:23
PROVIDERS: ATTEND Nurse Practitioner Family
DX: D72.819 Decreased white blood cell count, unspecified (principal)

== ENCOUNTER → 2023-02-15 | Outpatient (CLI) | payer OTHER | LOC: M WHC 09:00 | PROVIDERS: ATTEND Physician Assistant | DX: Z12.31 Encounter for screening mammogram for malignant neoplasm of breast (principal) ==

== ENCOUNTER → 2023-02-24 | Outpatient (CLI) | payer OTHER ==
[2023-02-24 09:29] LABS: BASO % 0.7 % (0.0-1.0); EOS # 0.1 10^3/uL (0.0-0.5); EOS % 1.6 % (0.0-3.0); HEMATOCRIT 41.3 % (36.0-47.0); HEMOGLOBIN 13.5 g/dl (12.0-15.5); LYMPH # 1.1 10^3/uL (1.5-5.0); LYMPH % 24.4 % (24.0-44.0); MEAN CORPUSCULAR HEMOGLOBIN 30.1 pg (27.0-33.0); MEAN CORPUSCULAR HGB CONC 32.7 g/dl (32.0-36.5); MEAN CORPUSCULAR VOLUME 92.2 fl (80.0-96.0); MONO # 0.3 10^3/uL (0.0-0.8); MONO % 6.9 % (2.0-8.0); NEUTROPHILS # 2.9 10^3/uL (1.5-8.5); NEUTROPHILS % 66.2 % (36.0-66.0); PLATELET COUNT, AUTOMATED 182 10^3/uL (150-450); RED BLOOD COUNT 4.48 10^6/uL (4.00-5.40); WHITE BLOOD COUNT 4.4 10^3/uL (4.0-10.0)
[2023-02-24 09:40] LABS: ERYTHROCYTE SEDIMENTATION RATE 12 mm/hr (0-30)
[2023-02-24 09:46] LABS: C REACTIVE PROTEIN QUANTITATIV < 0.40 MG/DL (<1.0)
[2023-02-24 09:47] LABS: ALBUMIN 3.3 G/DL (3.2-5.2); ALKALINE PHOSPHATASE 83 U/L (46-116); ALT/SGPT 20 U/L (7.0-40); AST/SGOT 20 U/L (<34); BILIRUBIN,TOTAL 0.5 MG/DL (0.3-1.2); BLOOD UREA NITROGEN 12 MG/DL (9-23); CALCIUM LEVEL 8.9 MG/DL (8.5-10.1); CARBON DIOXIDE LEVEL 31 MMOL/L (20-31); CHLORIDE LEVEL 109 MMOL/L (98-107); CREATININE FOR GFR 0.52 MG/DL (0.55-1.30); GLOMERULAR FILTRATION RATE > 60.0 (>51); GLUCOSE, FASTING 89 MG/DL (60-100); MAGNESIUM LEVEL 1.9 MG/DL (1.8-2.4); POTASSIUM SERUM 4.3 MMOL/L (3.5-5.1); SODIUM LEVEL 144 MMOL/L (136-145)
[2023-02-24 09:49] LABS: RHEUMATOID FACTOR QUANT < 3.5 IU/ML (<14)
[2023-02-24 09:50] LABS: THYROID STIMULATING HORMONE 2.063 uIU/ML (0.55-4.78)
== END ==
LOC: M LAB 08:34
PROVIDERS: ATTEND Nurse Practitioner Family
DX: D72.819 Decreased white blood cell count, unspecified (principal); R61 Generalized hyperhidrosis; Z98.84 Bariatric surgery status

== ENCOUNTER → 2023-03-04 | Outpatient (CLI) | payer OTHER | LOC: M WUC 11:20 | PROVIDERS: ATTEND Nurse Practitioner Family | DX: D72.819 Decreased white blood cell count, unspecified (principal) ==

== ENCOUNTER → 2023-03-31 | Outpatient (CLI) | payer OTHER ==
[~2023-03-31] MED LIST changes: +BIOT5TAB3 PO; +OMEP40CA5
[2023-03-31 10:28] LABS: HEMATOCRIT 41.5 % (36.0-47.0); HEMOGLOBIN 13.5 g/dl (12.0-15.5); MEAN CORPUSCULAR HEMOGLOBIN 30.1 pg (27.0-33.0); MEAN CORPUSCULAR HGB CONC 32.5 g/dl (32.0-36.5); MEAN CORPUSCULAR VOLUME 92.6 fl (80.0-96.0); PLATELET COUNT, AUTOMATED 168 10^3/uL (150-450); RED BLOOD COUNT 4.48 10^6/uL (4.00-5.40); WHITE BLOOD COUNT 3.7 10^3/uL (4.0-10.0)
[2023-03-31 10:56] LABS: ALBUMIN 3.6 G/DL (3.2-5.2); ALKALINE PHOSPHATASE 81 U/L (46-116); ALT/SGPT 22 U/L (7.0-40); AST/SGOT 22 U/L (<34); BILIRUBIN,TOTAL 0.6 MG/DL (0.3-1.2); BLOOD UREA NITROGEN 14 MG/DL (9-23); CALCIUM LEVEL 8.7 MG/DL (8.5-10.1); CARBON DIOXIDE LEVEL 33 MMOL/L (20-31); CHLORIDE LEVEL 108 MMOL/L (98-107); CHOLESTEROL LEVEL 165 MG/DL (<200); CHOLESTEROL RISK RATIO 2.77 (<5); CREATININE FOR GFR 0.58 MG/DL (0.55-1.30); GLOMERULAR FILTRATION RATE > 60.0 (>51); GLUCOSE, FASTING 56 MG/DL (60-100); HDL CHOLESTEROL 59.4 MG/DL (>40); IRON (FE) 101 UG/DL (50-170); MAGNESIUM LEVEL 1.7 MG/DL (1.8-2.4); NON-HDL-C 105.6 MG/DL; PERCENT SATURATION 28.5 % (13.2-45.0); POTASSIUM SERUM 4.1 MMOL/L (3.5-5.1); SODIUM LEVEL 143 MMOL/L (136-145); TOTAL IRON BINDING CAPACITY 355 UG/DL (250-425); TOTAL PROTEIN 6.3 G/DL (5.7-8.2); TRIGLYCERIDES LEVEL 108 MG/DL (<150)
[2023-03-31 10:57] LABS: THYROID STIMULATING HORMONE 1.878 uIU/ML (0.55-4.78)
[2023-03-31 10:58] LABS: FERRITIN 104.6 NG/ML (7.3-270.7); TOTAL 25(OH) VITAMIN D 31.4 NG/ML (20.0-100.0)
== END ==
LOC: M LAB 10:02
PROVIDERS: ATTEND Nurse Practitioner Family
DX: R03.0 Elevated blood-pressure reading, without diagnosis of hypertension (principal)

== ENCOUNTER → 2023-07-02 | Outpatient (CLI) | payer OTHER ==
[2023-07-02 10:47] LABS: BASO % 0.5 % (0.0-1.0); EOS # 0.1 10^3/uL (0.0-0.5); EOS % 1.8 % (0.0-3.0); HEMATOCRIT 39.1 % (36.0-47.0); HEMOGLOBIN 12.7 g/dl (12.0-15.5); LYMPH % 25.8 % (24.0-44.0); MEAN CORPUSCULAR HEMOGLOBIN 29.7 pg (27.0-33.0); MEAN CORPUSCULAR HGB CONC 32.5 g/dl (32.0-36.5); MEAN CORPUSCULAR VOLUME 91.6 fl (80.0-96.0); MONO # 0.3 10^3/uL (0.0-0.8); MONO % 7.6 % (2.0-8.0); NEUTROPHILS # 2.5 10^3/uL (1.5-8.5); PLATELET COUNT, AUTOMATED 172 10^3/uL (150-450); RED BLOOD COUNT 4.27 10^6/uL (4.00-5.40); WHITE BLOOD COUNT 3.8 10^3/uL (4.0-10.0)
[2023-07-02 11:19] LABS: ALBUMIN 3.4 G/DL (3.2-5.2); ALKALINE PHOSPHATASE 64 U/L (46-116); ALT/SGPT 17 U/L (7.0-40); AST/SGOT 17 U/L (<34); BILIRUBIN,TOTAL 0.5 MG/DL (0.3-1.2); BLOOD UREA NITROGEN 12 MG/DL (9-23); CALCIUM LEVEL 8.9 MG/DL (8.5-10.1); CARBON DIOXIDE LEVEL 30 MMOL/L (20-31); CHLORIDE LEVEL 107 MMOL/L (98-107); CREATININE FOR GFR 0.51 MG/DL (0.55-1.30); GLOMERULAR FILTRATION RATE > 60.0 (>51); GLUCOSE, FASTING 84 MG/DL (60-100); SODIUM LEVEL 143 MMOL/L (136-145); TOTAL PROTEIN 6.1 G/DL (5.7-8.2)
== END ==
LOC: M LAB 08:50
PROVIDERS: ATTEND Internal Medicine Hematology & Oncology
DX: I89.0 Lymphedema, not elsewhere classified (principal)

== ENCOUNTER → 2023-07-02 | Outpatient (CLI) | payer OTHER ==
[2023-07-02 10:47] LABS: HEMATOCRIT 38.9 % (36.0-47.0); HEMOGLOBIN 12.6 g/dl (12.0-15.5); MEAN CORPUSCULAR HEMOGLOBIN 29.4 pg (27.0-33.0); MEAN CORPUSCULAR HGB CONC 32.4 g/dl (32.0-36.5); MEAN CORPUSCULAR VOLUME 90.9 fl (80.0-96.0); PLATELET COUNT, AUTOMATED 177 10^3/uL (150-450); RED BLOOD COUNT 4.28 10^6/uL (4.00-5.40); WHITE BLOOD COUNT 3.9 10^3/uL (4.0-10.0)
[2023-07-02 11:19] LABS: BLOOD UREA NITROGEN 12 MG/DL (9-23); CALCIUM LEVEL 8.9 MG/DL (8.5-10.1); CARBON DIOXIDE LEVEL 30 MMOL/L (20-31); CHLORIDE LEVEL 106 MMOL/L (98-107); CREATININE FOR GFR 0.49 MG/DL (0.55-1.30); GLOMERULAR FILTRATION RATE > 60.0 (>51); GLUCOSE, FASTING 83 MG/DL (60-100); SODIUM LEVEL 143 MMOL/L (136-145)
[2023-07-02 11:21] LABS: TOTAL 25(OH) VITAMIN D 22.2 NG/ML (20.0-100.0); VITAMIN B12 LEVEL 464 PG/ML (211-911)
[2023-07-02 11:22] LABS: FERRITIN 66.8 NG/ML (7.3-270.7); FOLATE 15.65 NG/ML (>5.4)
== END ==
LOC: M LAB 08:53
PROVIDERS: ATTEND Physician Assistant
DX: K91.2 Postsurgical malabsorption, not elsewhere classified (principal); D72.819 Decreased white blood cell count, unspecified; Z98.84 Bariatric surgery status

== ENCOUNTER → 2023-08-30 | Outpatient (REF) | payer OTHER ==
[2023-08-30 17:34] LABS: APPEARANCE, URINE HAZY (CLEAR); BACTERIA, URINE AUTO NEGATIVE (NEGATIVE); BILIRUBIN, URINE AUTO NEGATIVE (NEGATIVE); BLOOD, URINE BLOOD NEGATIVE (NEGATIVE); COLOR, URINE YELLOW (YELLOW); GLUCOSE, URINE (UA) AUTO NEGATIVE (NEGATIVE); KETONE, URINE AUTO TRACE mg/dL (NEGATIVE); LEUKOCYTE ESTERASE, URINE AUTO TRACE (NEGATIVE); MUCUS, URINE MODERATE (NEGATIVE); NITRITE, URINE AUTO NEGATIVE (NEGATIVE); PROTEIN, URINE AUTO NEGATIVE (NEGATIVE); RBC, URINE AUTO 2 /HPF (0-3); SPECIFIC GRAVITY URINE AUTO 1.021 (1.002-1.035); SQUAMOUS EPITHELIAL CELL UR AU 1 /HPF (0-6); WBC, URINE AUTO 4 /HPF (0-3)
[2023-08-30 17:50] LABS: CREATININE, URINE 137.2 MG/DL; MAU/CREAT RATIO 6.5 MCG/MG (0.0-30.0)
== END ==
LOC: M LAB REF 16:16
PROVIDERS: ATTEND Nurse Practitioner Family
DX: R30.0 Dysuria (principal); E11.9 Type 2 diabetes mellitus without complications

== ENCOUNTER → 2023-09-16 | Outpatient (CLI) | payer OTHER | LOC: M WUC 12:04 | PROVIDERS: ATTEND Nurse Practitioner Family | DX: R61 Generalized hyperhidrosis (principal) ==

== ENCOUNTER 2023-11-20 12:21 | Emergency (ER) | payer OTHER ==
[~2023-11-20] VITALS: Ht 162.6 cm; Wt 92.6 kg
[2023-11-20 12:21] VITALS: BP 134/75; TEMP 97.8; O2SAT 97
[2023-11-20] MEDS ORDERED: ATOR1TAB19 (12:34)
[2023-11-20] MEDS ORDERED: ACET-897 PO (12:34)
[2023-11-20] MEDS: IBUPROFEN 800 MG TAB PO ONE (14:31)
== END 2023-11-20 14:40 | disposition home or self-care (01) ==
LOC: M ED 12:21
DX: S62.652A Nondisplaced fracture of middle phalanx of right middle finger, initial encounter for closed fracture (principal); W01.0XXA Fall on same level from slipping, tripping and stumbling without subsequent striking against object, initial encounter; Z98.84 Bariatric surgery status; Z79.02 Long term (current) use of antithrombotics/antiplatelets; Z79.899 Other long term (current) drug therapy; Z79.1 Long term (current) use of non-steroidal anti-inflammatories (NSAID); Y92.9 Unspecified place or not applicable; Y93.89 Activity, other specified; Y99.9 Unspecified external cause status

== ENCOUNTER → 2023-12-07 | Outpatient (CLI) | payer OTHER ==
[~2023-12-07] MED LIST changes: +ACET-897 PO; +ATOR1TAB19
== END ==
LOC: M SOG 07:21
PROVIDERS: ATTEND Physician Assistant
DX: S62.652D Nondisplaced fracture of middle phalanx of right middle finger, subsequent encounter for fracture with routine healing (principal)

== ENCOUNTER → 2024-01-04 | Outpatient (CLI) | payer OTHER | LOC: M SOG 07:48 | PROVIDERS: ATTEND Physician Assistant | DX: M25.641 Stiffness of right hand, not elsewhere classified (principal) ==

== ENCOUNTER → 2025-03-02 | Outpatient (CLI) | payer OTHER ==
[2025-03-02 15:03] LABS: BASO # 0.0 10^3/uL (0.0-0.2); BASO % 0.4 % (0.0-1.0); EOS # 0.1 10^3/uL (0.0-0.5); EOS % 1.0 % (0.0-3.0); LYMPH # 1.1 10^3/uL (1.5-5.0); LYMPH % 22.6 % (24.0-44.0); MONO # 0.4 10^3/uL (0.0-0.8); MONO % 8.7 % (2.0-8.0); NEUTROPHILS # 3.3 10^3/uL (1.5-8.5); NEUTROPHILS % 67.1 % (36.0-66.0); PLATELET COUNT, AUTOMATED 202 10^3/uL (150-450)
[2025-03-02 15:06] LABS: CHOLESTEROL LEVEL 193.0 MG/DL (<200); CHOLESTEROL RISK RATIO 2.74 (<5); IRON (FE) 57.0 UG/DL (50-170); LDL CHOLESTEROL 97.8 MG/DL (<100); NON-HDL-C 122.6 MG/DL; PERCENT SATURATION 15.2 % (13.2-45.0); TRIGLYCERIDES LEVEL 124.0 MG/DL (<150)
[2025-03-02 15:09] LABS: VITAMIN B12 LEVEL 270.0 PG/ML (211-911)
== END ==
LOC: M WUC 11:29
PROVIDERS: ATTEND Nurse Practitioner Family
DX: E11.9 Type 2 diabetes mellitus without complications (principal)